=== PATIENT | female | born 1955 | race Caucasian/White ===

== ENCOUNTER 2018-04-10 01:21 | Inpatient (IN) ==
[2018-04-10] MEDS ORDERED: Naloxone 0.4 MG/ML INJ IVP PRN (03:18)
[2018-04-10] MEDS ORDERED: 0.9 % Sodium Chloride 1,000 ML IVC SCH (03:30)
[2018-04-10 04:54] LABS: Basophils # 0.1 K/mcL (0.0-0.2); Basophils % 0.3 %; Eosinophils % 0.1 %; Hematocrit 37.5 % (35.3-44.9); Hemoglobin 12.6 g/dL (11.5-15.4); Immature Granulocytes % 0.5 % (0-4); Lymphocytes # 1.1 K/mcL (0.6-4.6); Mean Corpuscular HGB Conc 33.6 g/dL (31.6-35.5); Mean Corpuscular Hemoglobin 29.4 pg (28.0-33.3); Mean Corpuscular Volume 87.6 fL (83.0-100.0); Mean Platelet Volume 9.8 fL (9.4-12.4); Monocytes # 1.9 K/mcL (0.0-1.3); Monocytes % 11.9 %; Platelet Count 292 K/mcL (140-400); Red Blood Count 4.28 M/mcL (3.82-4.97); Red Cell Distribution Width 13.5 % (11.5-14.5); Segmented Neutrophils % 80.2 %
[2018-04-10 05:11] LABS: Alanine Aminotransferase 24 Units/L (7-52); Albumin 3.6 g/dL (3.5-5.7); Albumin/Globulin Ratio 1.3 (1.1-2.2); Alkaline Phosphatase 109 Units/L (34-104); Aspartate Amino Transferase 43 Units/L (13-39); BUN/Creatinine Ratio 17 (6-26); Bilirubin,Total 0.5 mg/dL (0.3-1.0); Blood Urea Nitrogen 9 mg/dL (8-23); Calcium 8.8 mg/dL (8.6-10.3); Carbon Dioxide 21 mEq/L (23-29); Chloride 107 mEq/L (98-107); Globulin 2.8 g/dL (2.4-3.5); Glucose 144 mg/dL (70-105); Osmolality,Calculated 285 (280-300); Potassium 3.6 mEq/L (3.5-5.1); Sodium 137 mEq/L (136-145); Total Protein 6.4 g/dL (6.4-8.9); eGFR For Non-African Americans > 60 (> 60)
[2018-04-10 05:14] LABS: INR 1.2; Prothrombin Time 13.8 Seconds (9.4-12.1); Troponin I 0.05 ng/mL (< 0.04)
--- NOTE | 2018-04-10 05:46 | Internal Med History&Physical ---
Date of Encounter: 04/10/18 Time of Encounter: 05:27 Internal Medicine - H&P: HPI Chief complaint: Shortness of breath/confusion History of present illness: Ms. Dickerson is a 62 year old female with a past medical history of CVA with right- sided residual weakness, dementia, PA, hypertension who was brought into [facility] due to shortness of breath. During my initial assessment, patient is a poor historian and no family members were at bedside, much of the information was obtained from records at [facility]. Apparently patient had called EMS several times today, at 11 AM and then again at 8:42 PM for a lift assist getting back into her chair. When EMS arrived in the evening, they had noted some right-sided weakness, the patient was also hyperventilating and diaphoretic and was subsequently taken to [facility] as a stroke alert for right-sided weakness. Patient's subsequently arrived and verify that the patient had a stroke 3 years ago with subsequent residual right-sided weakness, change in speech pattern and some visual deficits in both eyes. At baseline patient is able to walk and perform most activities. CT scan of the head showed no acute changes. Patient was given a breathing treatment and O2 support. Attempts were made to discontinue nasal cannula, however, patient would desaturate into the mid 80s. She was found to have an elevated d-dimer of greater than 2000 in addition to a white count of 16.5 and troponin of 0.04 . CTA was performed which was negative for PE but did identify a left lung mass concerning for malignancy. EKG was relatively unchanged from previous. No reports of chest pain. Past Med Surg Social Fam HX - Past Medical History Medical history: CVA, dementia, hyperlipidemia, hypertension, myocardial infarction, other Additional medical history: deficits from CVA unknown Psychiatric history: previous psychiatric hospitalization, other - Past Surgical History Surgical History: no surgical history - Social History Smoking Status: Never smoker Smokeless Tobacco Status: No Alcohol use: none Drug use: unknown Internal Medicine - H&P: Meds Atorvastatin [Lipitor] 40 mg PO DAILY 03/29/17 [History] Citalopram [CeleXA] 10 mg PO DAILY 03/29/17 [History] Clopidogrel [Plavix] 75 mg PO DAILY 03/29/17 [History] Haloperidol [Haldol] 0.5 mg PO BID 03/29/17 [History] Lisinopril [Zestril] 30 mg PO DAILY 03/29/17 [History] amLODIPine [Norvasc] 10 mg PO DAILY 03/29/17 [History] Aspirin [Adult Aspirin] 81 mg PO DAILY 04/09/18 [History] Ferrous Sulfate [Iron] 325 mg PO DAILY 04/09/18 [History] Vitamin D 1 PO QMONTH 04/09/18 [History] Allergy/AdvReac Type Severity Reaction Status Date / Time No Known Allergies Allergy Verified 04/09/18 22:16 All Systems PM: A 10-system review of systems was performed and is negative for pertinent findings except as documented above in the HPI. - Constitutional Constitutional: no chills, no fever(s), no night sweats - EENT Eyes: no change in vision, no discharge, no pain, no photophobia Ears: no ear discharge, no ear pain, no tinnitus Nose, mouth and throat: no dysphagia, no nasal discharge, no neck pain, no sore throat - Cardiovascular Cardiovascular ROS IM: no chest pain, no diaphoresis, no dyspnea, no lightheaded ness, no palpitations, no syncope - Respiratory Respiratory: no cough, no dyspnea, no wheezing, no excessive phlegm production - Gastrointestinal Gastrointestinal: no abdominal pain, no diarrhea, no hematemesis, no hematoc hezia, no melena, no nausea, no vomiting - Genitourinary Genitourinary: no change in urinary stream, no dysuria, no flank pain, no hematuria - Musculoskeletal Musculoskeletal ROS IM: no numbness, no tingling - Integumentary Integumentary IM: no rash, no unusual bruising - Neurological Neurological ROS: no confusion, no convulsions, no focal weakness, no numbness, no tingling, no tremor(s) - Hematologic/Lymphatic Hematologic/Lymphatic: no easy bruising - Constitutional Vitals: Temp Pulse Resp BP Pulse Ox 98.3 F 82 24 165/70 95 04/10/18 03:02 04/10/18 03:02 04/10/18 03:02 04/10/18 03:02 04/10/18 03:02 Exam: General: Alert and oriented 2 Skin:Normal color, no rash, no lesions. HEENT:EOM, pupils equal, round and reactive. Cardiovascular:Normal S1 & S2, no rubs, murmurs or gallops. No JVD. Pulse regular. Lungs: Expiratory wheezing appreciated bilaterally Abdomen:Soft, non-tender, no rigidity. Extremities:No deformity, no edema or tenderness, no joint swelling or clubbing. Neurological: No focal deficits appreciated. Pulses:Carotid and radial pulses normal +2. Rest of the physical exam is non contributory Internal Med - H&P Results - Labs CBC & Chem 7: 04/10/18 04:26 04/10/18 04:26 Labs: Short CBC 04/10/18 Range/Units 04:26 WBC 16.2 H (4.3-11.1) K/mcL Hgb 12.6 (11.5-15.4) g/dL Hct 37.5 (35.3-44.9) % Plt Count 292 (140-400) K/mcL Neutrophils # 13.0 H (1.6-8.9) K/mcL BMP 04/10/18 04:26 Sodium 137 Potassium 3.6 Chloride 107 Carbon Dioxide 21 L BUN 9 Creatinine 0.54 L Glucose 144 H Calcium 8.8 Cardiac Enzymes 04/10/18 Range/Units 04:26 Troponin I 0.05 H* (< 0.04) ng/mL Liver Function 04/10/18 Range/Units 04:26 Total Bilirubin 0.5 (0.3-1.0) mg/dL AST 43 H (13-39) Units/L ALT 24 (7-52) Units/L Alkaline Phosphatase 109 H (34-104) Units/L Albumin 3.6 (3.5-5.7) g/dL - Assessment and plan (1) Acute respiratory failure with hypoxia Current Visit: Yes Status: Acute Assessment and plan: Acute hypoxic respiratory failure in the setting of left lung mass. She also has a elevated white blood cell count and expiratory wheezing on physical examination concerning for possible pneumonia and COPD exacerbation. Patient is not on oxygen at baseline and is currently requiring 4 L. Patient apparently is an active smoker. -We will place patient on continuous pulse oximetry -We will obtain an ABG -We will initiate treatment for COPD exacerbation -Continue with levofloxacin -Appreciate pulmonary input (2) Lung mass Current Visit: Yes Status: Acute Assessment and plan: CTA shows a multilobulated left lower lobe 4.9 cm infrahilar mass highly suspicious for malignancy. There is numerous surrounding left lower lobe pulmonary nodules which could represent a combination of metastatic disease and postobstructive infectious versus inflammation. Additionally noted were multiple groundglass and solid pulmonary nodules scattered throughout both lungs suspicious for metastatic disease. Few prominent left hilar perihilar and mediastinal lymph nodes. (3) Confusion Current Visit: Yes Status: Acute Assessment and plan: Patient alert and oriented 2. No family members were at bedside to assess the patient's baseline mental status. Patient does have a history of dementia and previous history of CVA. This may be possibly patient's baseline versus a metabolic encephalopathy in the setting of hypoxia secondary to lung mass and possible pneumonia versus COPD exacerbation. -We will start patient on duo nebs and steroids -Levofloxacin -Supplemental oxygen (4) COPD exacerbation Current Visit: Yes Status: Acute Assessment and plan: Patient presents with hypoxia with a diffuse expiratory wheezing concerning for COPD exacerbation. -Duo nebs -Steroids -Levofloxacin (5) DVT prophylaxis Current Visit: Yes Status: Acute Assessment and plan: Subcutaneous heparin - Time Spent With Patient Total time spent is greater than 50% in coordination of care (as documented) at patient's floor/unit and/or counseling patient:
[2018-04-10] MEDS: MethylPREDNISolone 40 MG/ML VIAL IVP SCH ×3 (06:31→17:15)
--- NOTE | 2018-04-10 06:58 | Pulmonology Consult Note ---
Date of Encounter: 04/10/18 Time of Encounter: 06:58 Assessment and Plan (1) Lung mass Current Visit: Yes Status: Acute In conclusion this is a 62-year-old woman with a past medical history of CVA and dementia she also has underlying COPD she presented with acute respiratory failure secondary to pneumonia which is likely postobstructive in nature from a left-sided lung mass he also has COPD with an exacerbation acutely. I Reviewed her CT images and she is concern for left-sided lung mass which is suspected to be malignant. She also has hilar and mediastinal adenopathy bilateral evidence of lung nodules with some groundglass opacities which could be infectious or malignant in nature. Of note she does have some evidence of a nonenhancing liver lesion. Recs: -Agree with treatment for pneumonia Levaquin is a reasonable place to start if we can obtain sputum culture from patient that would be helpful may need to switch to beta lactam based treatment if no improvement with Levaquin. -I suspect this is metastatic disease at least within the long as there may be a evidence of metastasis outside of the lung for which I recommend CT contrast of the abdomen if this liver lesion appears to be malignant in nature than this would of course be much more concerning for metastatic process. -The question at this point is confused revolve around biopsy to make a tissue diagnosis. Unfortunately I think all options right now we will likely be on hold until Thursday until the necessary Pulmonary endoscopist or interventional radiologist would be available - If the liver lesion appears suspicious I would recommend starting with this via CT-guided biopsy -I will discuss with family about possibility of bronchoscopy which we need to be done with endobronchial ultrasound/FNA. This will not be done over the weekend and so from pulmonary standpoint okay to advance her diet I think she has a high risk for speech and swallowing abnormalities at this juncture and so would recommend consultation with speech to assess her swallowing mechanism. -Would start to 40 mg of prednisone daily if tolerating by mouth medication safely -Schedule bronchodilators and Symbicort 160/4.52 puffs twice a day -DVT prophylaxis while inpatient -Consider head MRI if confusional state continues and in fact would likely need this as a part of the staging at any event Pulmonary will continue to follow (2) Acute respiratory failure with hypoxia Current Visit: Yes Status: Acute (3) Confusion Current Visit: Yes Status: Acute (4) COPD exacerbation Current Visit: Yes Status: Acute History of Present Illness Consult date: 04/10/18 Requesting physician: Mike Clark Reason for consult: lung mass Chief complaint: Difficulty in Breathing History of present illness: This is a 62-year-old woman who presented to [facility] after family noticed some concern for new right-sided weakness and confusion and labored breathing. She has a history of CVA in the past and so she was taken to [place] the for evaluation on stroke alert. Of note the medical history was obtained from the nursing staff and the medical record as the patient is considered and an unreliable historian and there are no family members at bedside right now. Workup for acute stroke at the outside facility was negative per report but patient was noted to have leukocytosis and hypoxia CT angiogram was performed of the chest which was negative for filling defect but notable for left-sided lung mass with evidence of likely postobstructive pneumonia pulmonary was consulted for further evaluation. Patient has an extensive smoking history in fact said that she still smoking at this time although I am unable to corroborate that at this moment. She is been coughing quite a bit since she has been here and in fact during my examination she was coughing up some thick phlegm. There is no clear evidence of hemoptysis with this though however. Past Med Surg Social Fam HX - Past Medical History Medical history: CVA, dementia, hyperlipidemia, hypertension, myocardial infarction, other Additional medical history: deficits from CVA unknown Psychiatric history: previous psychiatric hospitalization, other - Past Surgical History Surgical History: no surgical history - Social History Smoking Status: Never smoker Smokeless Tobacco Status: No Alcohol use: none Drug use: unknown Medications and Allergies Atorvastatin [Lipitor] 40 mg PO DAILY 03/29/17 [History] Clopidogrel [Plavix] 75 mg PO DAILY 03/29/17 [History] Aspirin [Adult Aspirin] 81 mg PO DAILY 04/09/18 [History] Ferrous Sulfate [Iron] 325 mg PO DAILY 04/09/18 [History] Amlodipine Besylate 10 mg PO DAILY 04/10/18 [History] Citalopram Hydrobromide [Citalopram HBr] 5 mg PO DAILY 04/10/18 [History] Ergocalciferol (VITAMIN D2) [Vitamin D2] 50,000 unit PO QMONTH 04/10/18 [History] Haloperidol Oral Conc [Haldol] 0.25 mg PO Q12H 04/10/18 [History] Lisinopril 30 mg PO DAILY 04/10/18 [History] Allergy/AdvReac Type Severity Reaction Status Date / Time No Known Allergies Allergy Verified 04/10/18 10:33 All Systems: The remainder of the systems were reviewed and are negative Physical Examination Vital Signs: Vital Signs, Last 4 Hours Temp Pulse Resp BP Pulse Ox 04/10/18 03:02 98.3 F 82 24 165/70 95 General appearance: no acute distress Eyes: nonicteric ENT: oropharynx dry Mallampati (class): 4 Neck: supple Effort: mildly labored Auscultation: left: rhonchi, bilateral: wheezes Cardiovascular: regular rate and rhythm Gastrointestinal: normoactive bowel sounds, soft, non-tender Integumentary: normal Extremities: no cyanosis pupils equal and round, other (Motor function grossly intact there may be a very mild residual right-sided deficit compared to left) mood appropriate Results - Laboratory Findings CBC and BMP: 04/10/18 04:26 04/10/18 04:26 PT/INR, D-dimer PT 13.8 Seconds (9.4-12.1) H 04/10/18 04:26 Abnormal lab findings: Abnormal lab results WBC 16.2 K/mcL (4.3-11.1) H 04/10/18 04:26 Neutrophils # 13.0 K/mcL (1.6-8.9) H 04/10/18 04:26 Monocytes # 1.9 K/mcL (0.0-1.3) H 04/10/18 04:26 PT 13.8 Seconds (9.4-12.1) H 04/10/18 04:26 Carbon Dioxide 21 mEq/L (23-29) L 04/10/18 04:26 Creatinine 0.54 mg/dL (0.60-1.20) L 04/10/18 04:26 Glucose 144 mg/dL (70-105) H 04/10/18 04:26 AST 43 Units/L (13-39) H 04/10/18 04:26 Alkaline Phosphatase 109 Units/L (34-104) H 04/10/18 04:26 Troponin I 0.05 ng/mL (< 0.04) H* 04/10/18 04:26 - Diagnostic Findings Chest x-ray: report reviewed, image reviewed CT scan - chest: report reviewed, image reviewed - Clinical Findings Intake & Output: Intake & Output 04/09/18 04/09/18 04/10/18 15:59 23:59 07:59 Weight 80.2 kg Consult Discharge Plan - Plan Referrals: NONE,PCP [Primary Care Provider] -
[2018-04-10 07:05] LABS: ABG Base Excess 2 mEq/L (-2 to 3); ABG HCO3 27 mEq/L (21-27); ABG Oxygen Saturation 98 % (95-98); ABG PCO2 43 mmHg (35-45); ABG PH 7.41 pH Units (7.32-7.45); ABG PO2 110 mmHg (85-104); ABG TCO2 28 mEq/L (20-26)
--- NOTE | 2018-04-10 08:46 | Event Note ---
<KavehAmaBrittany Olman - Last Filed: 04/10/18 22:15> Date of Encounter: 04/10/18 Time of Encounter: 08:46 Ms. Dickerson is a 62 year old female who was admitted for acute exacerbation of COPD. Chest imaging studies were significant for a mass highly suspicious for malignancy. She was seen and evaluated at the bedside this morning, and reports improvement in respiratory symptoms. She states that she is breathing much easier. She denies any fevers, chills, or productive cough. She states that this has been progressively worsening for "a while". Pulmonology service consulted for assistance in evaluation and management of this patient. OBJECTIVE: * General: Pleasant adult female in no acute distress. She is resting in bed co mfortably. * HEENT: Atraumatic and noocephalic. * Cardiovascular: Regular rate and rhythm. No murmurs, gallops, or rubs appreciated. * Respiratory: Diffusely decreased breath sounds bilaterally. Scattered coarse respiratory sounds. * Extremities: No clubbing ,cyanosis, or edema present. * Neurologic: Answers questions appropriately and is cooperative with exam. No apparent focal deficits. ASSESSMENT/PLAN: - COPD with acute exacerbation: Continue levaquin and nebulized breathing treatments. Transitioned to prednisone 40mg BIDWM. Sputum culture pending. - Lung mass: Per Dr. Dickinson, patient's brother, who is her POA, does not want extensive/invasive workup/management for this problem as she has had several health problems recently. At his recommendation, palliative care consult placed for goals of care discussion. CT chest/abdomen/pelvis pending for assessment of possible metastases. - DVT prophylaxis: Continue subcutaneous heparin. <Lore Landa - Last Filed: 04/11/18 15:03> Date of Encounter: 04/11/18 I examined this patient and my medical decision-making was reviewed with the Resident Physician. I agree with the documented findings, disposition and treatment plan as described except to the extent set forth below.
[2018-04-10] MEDS: *HR* Heparin 5,000 UNIT/ML VIAL SQ SCH ×3 (10:37→23:27)
[2018-04-10] MEDS: Ipratropium/Albuterol Neb 3 ML IH SCH ×4 (10:44→22:53)
[2018-04-10 13:34] LABS: Adenovirus Not Detected (Not Detect); Bordetella Pertussis Not Detected (Not Detect); Chlamydophila pneumoniae Not Detected (Not Detect); Coronavirus 229E Not Detected (Not Detect); Coronavirus HKU1 Not Detected (Not Detect); Coronavirus NL63 Not Detected (Not Detect); Coronavirus OC43 Not Detected (Not Detect); Human Metapneumovirus DETECTED (Not Detect); Human Rhinovirus/Enterovirus Not Detected (Not Detect); Influenza A Subtype 2009 H1 Not Detected (Not Detect); Influenza A Untypeable Not Detected (Not Detect); Influenza B Not Detected (Not Detect); Mycoplasma pneumoniae Not Detected (Not Detect); Parainfluenza Virus 1 Not Detected (Not Detect); Parainfluenza Virus 2 Not Detected (Not Detect); Parainfluenza Virus 3 Not Detected (Not Detect); Parainfluenza Virus 4 Not Detected (Not Detect); Respiratory Syncytial Virus Not Detected (Not Detect)
[2018-04-10] MEDS ORDERED: Albuterol 2.5 MG/3 ML NEBULIZER IH PRN (13:46)
[2018-04-10] MEDS ORDERED: Isovue-370 500 ML BOTTLE IVP ONE (17:04)
[2018-04-10] MEDS: Budesonide/Formoterol 160/4.5 1 PUFF INH IH SCH (22:53)
[2018-04-10] MEDS: Levofloxacin 750 MG/150 ML 750 MG/150 ML BAG IVPB SCH (23:27)
[2018-04-11] MEDS: Ipratropium/Albuterol Neb 3 ML IH SCH ×4 (04:36→22:36)
[2018-04-11 04:56] LABS: Hematocrit 36.7 % (35.3-44.9); Hemoglobin 12.3 g/dL (11.5-15.4); Immature Granulocytes % 0.7 % (0-4); Lymphocytes % 4.6 %; Mean Corpuscular HGB Conc 33.5 g/dL (31.6-35.5); Mean Corpuscular Hemoglobin 29.8 pg (28.0-33.3); Mean Corpuscular Volume 88.9 fL (83.0-100.0); Mean Platelet Volume 9.9 fL (9.4-12.4); Monocytes % 6.7 %; Platelet Count 303 K/mcL (140-400); Red Blood Count 4.13 M/mcL (3.82-4.97); Red Cell Distribution Width 13.6 % (11.5-14.5); Segmented Neutrophils % 87.9 %
[2018-04-11 04:57] LABS: Basophils % 0.1 %; Lymphocytes # 0.8 K/mcL (0.6-4.6); Monocytes # 1.1 K/mcL (0.0-1.3); Neutrophils # 14.3 K/mcL (1.6-8.9)
[2018-04-11 05:13] LABS: BUN/Creatinine Ratio 27 (6-26); Blood Urea Nitrogen 14 mg/dL (8-23); Calcium 8.9 mg/dL (8.6-10.3); Carbon Dioxide 23 mEq/L (23-29); Chloride 107 mEq/L (98-107); Glucose 148 mg/dL (70-105); Osmolality,Calculated 285 (280-300); Sodium 136 mEq/L (136-145); eGFR For Non-African Americans > 60 (> 60)
[2018-04-11] MEDS: *HR* Heparin 5,000 UNIT/ML VIAL SQ SCH ×3 (08:34→23:09)
[2018-04-11] MEDS: predniSONE 20 MG TABLET PO SCH ×2 (08:35→16:10)
--- NOTE | 2018-04-11 08:44 | Internal Med Progress Note ---
<Brittany Linn N - Last Filed: 04/11/18 12:16> Hospitalist Progress Note - Encounter Date of Encounter: 04/11/18 Time of Encounter: 08:44 - Subjective Interval History: Ms. Dickerson is a 62 year old female who was admitted for acute exacerbation of COPD. Chest imaging studies were significant for a mass highly suspicious for malignancy. She was seen and evaluated at the bedside this morning, and reports improvement in respiratory symptoms. She states that she is breathing much easier. She denies any fevers, chills, or productive cough. She states that this has been progressively worsening for "a while". Pulmonology service consulted for assistance in evaluation and management of this patient. 04/10 - Patient seen and evaluated at the bedside. She states that she is doing "alright" and denies any acute complaints or concerns. Nursing staff reports no acute overnight events. - Exam Vitals: Temp Pulse Resp BP Pulse Ox 97.7 F 80 18 137/66 93 04/11/18 07:59 04/11/18 07:59 04/11/18 07:59 04/11/18 07:59 04/11/18 07:59 Exam: * General: Pleasant adult female in no acute distress. She is resting in bed comfortably. * HEENT: Atraumatic and noocephalic. * Cardiovascular: Regular rate and rhythm. No murmurs, gallops, or rubs appre ciated. * Respiratory: Diffusely decreased breath sounds bilaterally. Scattered coarse respiratory sounds. * Extremities: No clubbing ,cyanosis, or edema present. * Neurologic: Answers questions appropriately and is cooperative with exam. No apparent focal deficits. - Assessment and Plan (1) COPD exacerbation Current Visit: Yes Status: Acute Assessment and Plan: - Continue Levaquin and nebulized breathing treatments. Continue prednisone 40mg BID. Sputum culture pending. - Appreciate pulmonology recommendations regarding this patient and management of her respiratory issues. (2) Lung mass Current Visit: Yes Status: Acute Assessment and Plan: Per Dr. Dickinson, patient's brother, who is her POA, does not want extensive/invasive workup/management for this problem as she has had several health problems recently. At his recommendation, palliative care consult placed for goals of care discussion. CT chest/abdomen/pelvis pending for assessment of possible metastases. CT chest/abdomen/pelvis demonstrated the followin. Redemonstration of a left infrahilar mass likely representing primary lung malignancy. Multiple additional nodular opacities in the left lower lobe with interlobular septal thickening may represent postobstructive changes versus metastatic disease. 2. Enlarged mediastinal and hilar nodes, likely reflecting metastatic disease. Recommend correlation with PET/CT. 3. Scattered nodular opacities in the lungs bilaterally, also suspicious for metastatic disease. 4. No definite evidence of malignancy below the diaphragm. Specifically, hepatic masses have been stable since 2007, compatible with benign etiologies. Redemonstration of thickening of the bilateral adrenal glands without discrete nodules. Further evaluation with PET/CT can be considered. 5. Cholelithiasis. 6. Severe atherosclerosis. - Palliative care consult placed for assistance in determining goals of care. Will followup after that discussion if further diagnostic measures are wanted by the patient and her family. (3) DVT prophylaxis Current Visit: Yes Status: Acute Assessment and Plan: - Continue subcutaneous heparin. (4) Leukocytosis Current Visit: Yes Status: Acute Assessment and Plan: Likely secondary to acute viral infection. Patient was found to have a positive human metapneumovirus PCR on serology studies. - Continue supportive care with breathing treatments, supplemental oxygen, and bronchodilators - Continue to monitor and try and with daily CBC - Time Spent with Patient Total time spent is greater than 50% in coordination of care (as documented) at patient's floor/unit and/or counseling patient: Internal Medicine: Result - Labs CBC & Chem 7: 04/11/18 04:34 04/11/18 04:34 Labs: Short CBC 04/11/18 Range/Units 04:34 WBC 16.2 H (4.3-11.1) K/mcL Hgb 12.3 (11.5-15.4) g/dL Hct 36.7 (35.3-44.9) % Plt Count 303 (140-400) K/mcL Neutrophils # 14.3 H (1.6-8.9) K/mcL BMP 04/11/18 04:34 Sodium 136 Potassium 4.0 Chloride 107 Carbon Dioxide 23 BUN 14 Creatinine 0.52 L Glucose 148 H Calcium 8.9 Cardiac Enzymes 04/10/18 Range/Units 09:50 Troponin I 0.04 H* (< 0.04) ng/mL - ABG Interpretation ABG results: ABG ABG pH 7.41 pH Units (7.32-7.45) 04/10/18 07:02 ABG pCO2 43 mmHg (35-45) 04/10/18 07:02 ABG pO2 110 mmHg (85-104) H 04/10/18 07:02 ABG O2 Saturation 98 % (95-98) 04/10/18 07:02 PT/INR, D-dimer PT 13.8 Seconds (9.4-12.1) H 04/10/18 04:26 - Impressions Impressions Abdomen/Pelvis CT 04/10/18 20:00 IMPRESSION: 1. Redemonstration of a left infrahilar mass likely representing primary lung malignancy. Multiple additional nodular opacities in the left lower lobe with interlobular septal thickening may represent postobstructive changes versus metastatic disease. 2. Enlarged mediastinal and hilar nodes, likely reflecting metastatic disease. Recommend correlation with PET/CT. 3. Scattered nodular opacities in the lungs bilaterally, also suspicious for metastatic disease. 4. No definite evidence of malignancy below the diaphragm. Specifically, hepatic masses have been stable since 2007, compatible with benign etiologies. Redemonstration of thickening of the bilateral adrenal glands without discrete nodules. Further evaluation with PET/CT can be considered. 5. Cholelithiasis. 6. Severe atherosclerosis. D/ / 04/10/2018 21:45:54 Carmen Gomez MD / earariadna Interpreting Provider: Carmen Gomez MD Chest CT 04/10/18 20:00 IMPRESSION: 1. Redemonstration of a left infrahilar mass likely representing primary lung malignancy. Multiple additional nodular opacities in the left lower lobe with interlobular septal thickening may represent postobstructive changes versus metastatic disease. 2. Enlarged mediastinal and hilar nodes, likely reflecting metastatic disease. Recommend correlation with PET/CT. 3. Scattered nodular opacities in the lungs bilaterally, also suspicious for metastatic disease. 4. No definite evidence of malignancy below the diaphragm. Specifically, hepatic masses have been stable since 2007, compatible with benign etiologies. Redemonstration of thickening of the bilateral adrenal glands without discrete nodules. Further evaluation with PET/CT can be considered. 5. Cholelithiasis. 6. Severe atherosclerosis. D/ / 04/10/2018 21:45:54 Carmen Gomez MD / lolis Interpreting Provider: Carmen Gomez MD Consult Discharge Plan - Plan Referrals: NONE,PCP [Primary Care Provider] - <Lore Landa - Last Filed: 04/11/18 15:04> Hospitalist Progress Note - Encounter Date of Encounter: 04/11/18 - Exam Vitals: Temp Pulse Resp BP Pulse Ox 98.1 F 52 16 134/63 94 04/11/18 11:38 04/11/18 11:38 04/11/18 11:38 04/11/18 11:38 04/11/18 11:38 - Assessment and Plan (1) Lung mass Current Visit: Yes Status: Acute (2) COPD exacerbation Current Visit: Yes Status: Acute (3) DVT prophylaxis Current Visit: Yes Status: Acute (4) Leukocytosis Current Visit: Yes Status: Acute - Time Spent with Patient Total time spent is greater than 50% in coordination of care (as documented) at patient's floor/unit and/or counseling patient: Internal Medicine: Result - Labs CBC & Chem 7: 04/11/18 04:34 04/11/18 04:34 Labs: Short CBC 04/11/18 Range/Units 04:34 WBC 16.2 H (4.3-11.1) K/mcL Hgb 12.3 (11.5-15.4) g/dL Hct 36.7 (35.3-44.9) % Plt Count 303 (140-400) K/mcL Neutrophils # 14.3 H (1.6-8.9) K/mcL BMP 04/11/18 04:34 Sodium 136 Potassium 4.0 Chloride 107 Carbon Dioxide 23 BUN 14 Creatinine 0.52 L Glucose 148 H Calcium 8.9 - ABG Interpretation ABG results: ABG ABG pH 7.41 pH Units (7.32-7.45) 04/10/18 07:02 ABG pCO2 43 mmHg (35-45) 04/10/18 07:02 ABG pO2 110 mmHg (85-104) H 04/10/18 07:02 ABG O2 Saturation 98 % (95-98) 04/10/18 07:02 PT/INR, D-dimer PT 13.8 Seconds (9.4-12.1) H 04/10/18 04:26 - Impressions Impressions Abdomen/Pelvis CT 04/10/18 20:00 IMPRESSION: 1. Redemonstration of a left infrahilar mass likely representing primary lung malignancy. Multiple additional nodular opacities in the left lower lobe with interlobular septal thickening may represent postobstructive changes versus metastatic disease. 2. Enlarged mediastinal and hilar nodes, likely reflecting metastatic disease. Recommend correlation with PET/CT. 3. Scattered nodular opacities in the lungs bilaterally, also suspicious for metastatic disease. 4. No definite evidence of malignancy below the diaphragm. Specifically, hepatic masses have been stable since 2007, compatible with benign etiologies. Redemonstration of thickening of the bilateral adrenal glands without discrete nodules. Further evaluation with PET/CT can be considered. 5. Cholelithiasis. 6. Severe atherosclerosis. D/ / 04/10/2018 21:45:54 Carmen Gomez MD / lolis Interpreting Provider: Carmen Gomez MD Chest CT 04/10/18 20:00 IMPRESSION: 1. Redemonstration of a left infrahilar mass likely representing primary lung malignancy. Multiple additional nodular opacities in the left lower lobe with interlobular septal thickening may represent postobstructive changes versus metastatic disease. 2. Enlarged mediastinal and hilar nodes, likely reflecting metastatic disease. Recommend correlation with PET/CT. 3. Scattered nodular opacities in the lungs bilaterally, also suspicious for metastatic disease. 4. No definite evidence of malignancy below the diaphragm. Specifically, hepatic masses have been stable since 2007, compatible with benign etiologies. Redemonstration of thickening of the bilateral adrenal glands without discrete nodules. Further evaluation with PET/CT can be considered. 5. Cholelithiasis. 6. Severe atherosclerosis. D/ : / 04/10/2018 21:45:54 Carmen Gomez MD / earnold Interpreting Provider: Carmen Gomez MD - Attending Attestation I examined this patient and my medical decision-making was reviewed with the Resident Physician. I agree with the documented findings, disposition and treatment plan as described except to the extent set forth below.
[2018-04-11] MEDS: Budesonide/Formoterol 160/4.5 1 PUFF INH IH SCH ×2 (09:59→22:36)
--- NOTE | 2018-04-11 12:29 | Palliative - Consult Note ---
Date of Encounter: 04/11/18 Time of Encounter: 11:00 - Assessment and Plan (1) Tobacco abuse Current Visit: Yes Status: Acute Assessment and plan: Nicotine patch ordered. Patient brother states history of heavy tobacco abuse. (2) Dyspnea Current Visit: Yes Status: Acute Assessment and plan: Treatment continues with bronchodilators, oral prednisone/symbicort. Patient states her breathing is back to baseline Qualifiers: Dyspnea type: unspecified Qualified Code(s): R06.00 - Dyspnea, unspecified (3) Goals of care, counseling/discussion Current Visit: Yes Status: Acute Assessment and plan: Spoke with brother, Donald via telephone. Patient lives with him and he is caregiver/POA. He states he also cares for her 44y/o daughter who is . Patient does not use any medical equipment at home, he states they have wheelchair, but it is broken. He does get home delivered meals for her, and tried passport, but she would not let anyone care for her other than Donald. Updated Donald on CT results, and attempted goals of care discussion over the telephone, however, I think that in this situation, this would be much better in person. He cannot come today with weather, and he has to find someone to stay with his niece, so plans on coming in tomorrow to meet with palliative team at 1300. I asked him to bring copy of pt advanced directives as I cannot find on file her. (4) Acute respiratory failure with hypoxia Current Visit: Yes Status: Acute (5) Lung mass Current Visit: Yes Status: Acute Assessment and plan: Discussed CT results with brother. Based on patient's overall debility, confusion, poor health, he desires no workup. Palliative-CN HPI - Data of Consult Consult date: 04/11/18 Requesting Physician: Lore Landa MD Primary Care Provider: PCP NONE - Consult Narrative History of present illness: Ms. Dickerson is a 62 year old female with a history of lung mass and COPD, who presented to [facility] with confusion, shortness of breath, and possible right sided weakness. THey initially did a stroke alert and workup wh ich was negative. She did have leukocytosis and abnormal CTA, so patient transferred here for further evaluation. Pulmonology was consulted and their noted reviewed. She is currently being treated with steroids, bronchodilators, supportive oxygen. Patient is poor historian and no family present, so information obtained from medical record and discussion with her brother, Donald, pt caregiver and POA. Other medical history includes: CVA, dementia, hyperlipidemia, hypertension, myocardial infarction. Upon my visit, patient is pleasant and alert, thinks she is in [place]. Poor historian. Can tell me she lives with brother Donald, and asking me to call him. Slight speech impairment noted. Follows commands. Appears in no respiratory distress. States she does not use oxygen at home. DEnies pain/nausea/constipation, states eating well. No visitors are present. CC: Lore Landa MD - Time Spent with Patient Time: Total time spent is greater than 50% in coordination of care (as documented) at patient's floor/unit and/or counseling patient: Past Med Surg Social Fam HX - Past Medical History Medical history: CVA, dementia, hyperlipidemia, hypertension, myocardial infarction, other Additional medical history: deficits from CVA unknown Psychiatric history: previous psychiatric hospitalization, other - Past Surgical History Surgical History: no surgical history - Social History Smoking Status: Never smoker Smokeless Tobacco Status: No Alcohol use: none Drug use: unknown Medications and Allergies Atorvastatin [Lipitor] 40 mg PO DAILY 03/29/17 [History] Clopidogrel [Plavix] 75 mg PO DAILY 03/29/17 [History] Aspirin [Adult Aspirin] 81 mg PO DAILY 04/09/18 [History] Ferrous Sulfate [Iron] 325 mg PO DAILY 04/09/18 [History] Amlodipine Besylate 10 mg PO DAILY 04/10/18 [History] Citalopram Hydrobromide [Citalopram HBr] 5 mg PO DAILY 04/10/18 [History] Ergocalciferol (VITAMIN D2) [Vitamin D2] 50,000 unit PO QMONTH 04/10/18 [History] Haloperidol Oral Conc [Haldol] 0.25 mg PO Q12H 04/10/18 [History] Lisinopril 30 mg PO DAILY 04/10/18 [History] Allergy/AdvReac Type Severity Reaction Status Date / Time No Known Allergies Allergy Verified 04/10/18 10:33 ROS unobtainable: due to mental status Palliative Care-Exam - Constitutional Vitals: Temp Pulse Resp BP Pulse Ox 98.1 F 52 16 134/63 94 04/11/18 11:38 04/11/18 11:38 04/11/18 11:38 04/11/18 11:38 04/11/18 11:38 General appearance: Present: no acute distress - Head Head Exam: Present: normal inspection, normocephalic - Respiratory Additional comments: Breath sounds diminished throughout. Expiratory wheezes noted. - Cardiovascular Cardiovascular exam: Present: +S1, +S2 - GI/Abdominal Exam GI/Abdominal exam: Present: normal bowel sounds, soft - Extremities Exam Extremities exam: Present: normal capillary refill, normal inspection - Neurological Exam Neurological exam: Present: alert Additional comments: Oriented to name only. Can answer some questions appropriately. Follows commands. NORRIS - Skin Skin exam: Present: dry, pallor, warm Internal Medicine - CN: Reslt - Labs CBC & Chem 7: 04/11/18 04:34 04/11/18 04:34 Labs: Short CBC 04/11/18 Range/Units 04:34 WBC 16.2 H (4.3-11.1) K/mcL Hgb 12.3 (11.5-15.4) g/dL Hct 36.7 (35.3-44.9) % Plt Count 303 (140-400) K/mcL Neutrophils # 14.3 H (1.6-8.9) K/mcL BMP 04/11/18 04:34 Sodium 136 Potassium 4.0 Chloride 107 Carbon Dioxide 23 BUN 14 Creatinine 0.52 L Glucose 148 H Calcium 8.9 - ABG Interpretation ABG results: ABG ABG pH 7.41 pH Units (7.32-7.45) 04/10/18 07:02 ABG pCO2 43 mmHg (35-45) 04/10/18 07:02 ABG pO2 110 mmHg (85-104) H 04/10/18 07:02 ABG O2 Saturation 98 % (95-98) 04/10/18 07:02 PT/INR, D-dimer PT 13.8 Seconds (9.4-12.1) H 04/10/18 04:26 - Impressions Impressions Abdomen/Pelvis CT 04/10/18 20:00 IMPRESSION: 1. Redemonstration of a left infrahilar mass likely representing primary lung malignancy. Multiple additional nodular opacities in the left lower lobe with interlobular septal thickening may represent postobstructive changes versus metastatic disease. 2. Enlarged mediastinal and hilar nodes, likely reflecting metastatic disease. Recommend correlation with PET/CT. 3. Scattered nodular opacities in the lungs bilaterally, also suspicious for metastatic disease. 4. No definite evidence of malignancy below the diaphragm. Specifically, hepatic masses have been stable since 2007, compatible with benign etiologies. Redemonstration of thickening of the bilateral adrenal glands without discrete nodules. Further evaluation with PET/CT can be considered. 5. Cholelithiasis. 6. Severe atherosclerosis. D/ / 04/10/2018 21:45:54 Carmen Gomez MD / lolis Interpreting Provider: Carmen Gomez MD Chest CT 04/10/18 20:00 IMPRESSION: 1. Redemonstration of a left infrahilar mass likely representing primary lung malignancy. Multiple additional nodular opacities in the left lower lobe with interlobular septal thickening may represent postobstructive changes versus metastatic disease. 2. Enlarged mediastinal and hilar nodes, likely reflecting metastatic disease. Recommend correlation with PET/CT. 3. Scattered nodular opacities in the lungs bilaterally, also suspicious for metastatic disease. 4. No definite evidence of malignancy below the diaphragm. Specifically, hepatic masses have been stable since 2007, compatible with benign etiologies. Redemonstration of thickening of the bilateral adrenal glands without discrete nodules. Further evaluation with PET/CT can be considered. 5. Cholelithiasis. 6. Severe atherosclerosis. D/ : / 04/10/2018 21:45:54 Carmen Gomez MD / lolis Interpreting Provider: Carmen Gomez MD Consult Discharge Plan - Plan Referrals: NONE,PCP [Primary Care Provider] - Palliative Quality Palliative Quality: Screen for Code Status: NA (Awaiting family meeting), Screen for Goals of Care: NA, Screen for Pain: Yes, If Pain Regimen Started, Initiate Bowel Regimen: NA, Screen for Nausea/Vomitting: Yes Code Status: 04/10/18 03:18 Resuscitation Status: Active [RES] Routine Comment: Resuscitation Status: Full Code
[2018-04-11] MEDS: Nicotine 21 MG PATCH.TD24 TD SCH (14:33)
[2018-04-11] MEDS: Levofloxacin 750 MG/150 ML 750 MG/150 ML BAG IVPB SCH (23:09)
[2018-04-12] MEDS: Ipratropium/Albuterol Neb 3 ML IH SCH ×4 (04:21→22:32)
[2018-04-12 05:33] LABS: Basophils % 0.2 %; Hematocrit 37.1 % (35.3-44.9); Hemoglobin 12.1 g/dL (11.5-15.4); Immature Granulocytes % 0.8 % (0-4); Lymphocytes # 0.9 K/mcL (0.6-4.6); Lymphocytes % 5.8 %; Mean Corpuscular HGB Conc 32.6 g/dL (31.6-35.5); Mean Corpuscular Hemoglobin 29.2 pg (28.0-33.3); Mean Corpuscular Volume 89.6 fL (83.0-100.0); Mean Platelet Volume 9.8 fL (9.4-12.4); Monocytes % 6.1 %; Neutrophils # 13.6 K/mcL (1.6-8.9); Platelet Count 354 K/mcL (140-400); Red Blood Count 4.14 M/mcL (3.82-4.97); Red Cell Distribution Width 13.9 % (11.5-14.5); Segmented Neutrophils % 87.1 %
[2018-04-12 06:03] LABS: BUN/Creatinine Ratio 31 (6-26); Blood Urea Nitrogen 16 mg/dL (8-23); Calcium 8.8 mg/dL (8.6-10.3); Carbon Dioxide 26 mEq/L (23-29); Chloride 106 mEq/L (98-107); Glucose 139 mg/dL (70-105); Osmolality,Calculated 291 (280-300); Potassium 3.9 mEq/L (3.5-5.1); Sodium 139 mEq/L (136-145); eGFR For Non-African Americans > 60 (> 60)
[2018-04-12] MEDS: Lisinopril 20 MG TABLET PO SCH (09:59)
[2018-04-12] MEDS: Nicotine 21 MG PATCH.TD24 TD SCH (09:59)
[2018-04-12] MEDS: amLODIPine 5 MG TABLET PO SCH (09:59)
[2018-04-12] MEDS: Haloperidol Oral Conc 10 MG/5 ML UDC PO SCH ×2 (10:00→21:25)
[2018-04-12] MEDS: Aspirin Enteric Coated 81 MG Tablet PO SCH (10:00)
[2018-04-12] MEDS: Cholecalciferol (D-3) 1,000 UNIT TABLET PO SCH (10:00)
[2018-04-12] MEDS: predniSONE 20 MG TABLET PO SCH ×3 (10:00→10:19)
[2018-04-12] MEDS: *HR* Heparin 5,000 UNIT/ML VIAL SQ SCH ×3 (10:00→23:30)
[2018-04-12] MEDS: Budesonide/Formoterol 160/4.5 1 PUFF INH IH SCH ×2 (10:41→22:32)
--- NOTE | 2018-04-12 10:48 | Internal Med Progress Note ---
<AlannahloisLore barksdale - Last Filed: 04/12/18 16:51> Hospitalist Progress Note - Encounter Date of Encounter: 04/12/18 - Exam Vitals: Temp Pulse Resp BP Pulse Ox 98.3 F 99 15 146/61 96 04/12/18 11:51 04/12/18 11:51 04/12/18 11:51 04/12/18 11:51 04/12/18 11:51 - Assessment and Plan (1) Lung mass Current Visit: Yes Status: Acute (2) COPD exacerbation Current Visit: Yes Status: Acute (3) DVT prophylaxis Current Visit: Yes Status: Acute (4) Leukocytosis Current Visit: Yes Status: Acute - Time Spent with Patient Total time spent is greater than 50% in coordination of care (as documented) at patient's floor/unit and/or counseling patient: Internal Medicine: Result - Labs CBC & Chem 7: 04/12/18 04:58 04/12/18 04:58 Labs: Short CBC 04/12/18 Range/Units 04:58 WBC 15.6 H (4.3-11.1) K/mcL Hgb 12.1 (11.5-15.4) g/dL Hct 37.1 (35.3-44.9) % Plt Count 354 (140-400) K/mcL Neutrophils # 13.6 H (1.6-8.9) K/mcL BMP 04/12/18 04:58 Sodium 139 Potassium 3.9 Chloride 106 Carbon Dioxide 26 BUN 16 Creatinine 0.51 L Glucose 139 H Calcium 8.8 - ABG Interpretation ABG results: ABG ABG pH 7.41 pH Units (7.32-7.45) 04/10/18 07:02 ABG pCO2 43 mmHg (35-45) 04/10/18 07:02 ABG pO2 110 mmHg (85-104) H 04/10/18 07:02 ABG O2 Saturation 98 % (95-98) 04/10/18 07:02 PT/INR, D-dimer PT 13.8 Seconds (9.4-12.1) H 04/10/18 04:26 Consult Discharge Plan - Plan Referrals: NONE,PCP [Primary Care Provider] - - Attending Attestation I examined this patient and my medical decision-making was reviewed with the Resident Physician. I agree with the documented findings, disposition and treatment plan as described except to the extent set forth below. Patient has a mobility limitation that significantly impairs his/her ability to participate in one or more mobility-related activities of daily living (i.e. to ileting, feeding, dressing, grooming, and bathing in customary location in the home). The mobility limitation cannot be sufficiently resolved by the use of an appropriately fitted cane or walker. Use of a manual wheelchair will significantly improve the patients ability to participate in MRADLs and the patient will use it on a regular basis in the home. Patient hasnt expressed an unwillingness to use the manual wheelchair that is provided in the home. Patient has sufficient upper body function and other physical and mental capabilities needed to safely self-propel the wheelchair during a typical day OR the patient has a caregiver to provide assistance with the wheelchair. <Brittany Linn N - Last Filed: 04/12/18 17:24> Hospitalist Progress Note - Encounter Date of Encounter: 04/12/18 Time of Encounter: 10:48 - Subjective Interval History: Ms. Dickerson is a 62 year old female who was admitted for acute exacerbation of COPD. Chest imaging studies were significant for a mass highly suspicious for malignancy. She was seen and evaluated at the bedside this morning, and reports improvement in respiratory symptoms. She states that she is breathing much easier. She denies any fevers, chills, or productive cough. She states that this has been progressively worsening for "a while". Pulmonology service consulted for assistance in evaluation and management of this patient. 04/12 - Patient seen and evaluated at the bedside. She states that she is doing "alright" and denies any acute complaints or concerns. Nursing staff reports no acute overnight events. Palliative care team is planning to discuss goals of care with her and her brother this afternoon. - Exam Vitals: Temp Pulse Resp BP Pulse Ox 98.2 F 85 15 166/74 96 04/12/18 06:31 04/12/18 06:31 04/12/18 10:42 04/12/18 06:31 04/12/18 10:42 Exam: * General: Pleasant adult female in no acute distress. She is resting in bed comfortably. * HEENT: Atraumatic and normocephalic. Oxygen mask in place. * Cardiovascular: Regular rate and rhythm. No murmurs, gallops, or rubs appreciated. * Respiratory: Diffusely decreased breath sounds bilaterally. Scattered coarse respiratory sounds. * Extremities: No clubbing ,cyanosis, or edema present. * Neurologic: Answers questions appropriately and is cooperative with exam. No apparent focal deficits. - Assessment and Plan (1) COPD exacerbation Current Visit: Yes Status: Acute Assessment and Plan: - Continue Levaquin and nebulized breathing treatments. Continue prednisone 40mg daily. Anticipate a total 5 day course of steroids. - Appreciate pulmonology recommendations regarding this patient and management of her respiratory issues. (2) Leukocytosis Current Visit: Yes Status: Acute Assessment and Plan: Slightly improved on morning laboratory studies. Likely secondary to acute viral infection. Patient was found to have a positive human metapneumovirus PCR on serology studies. - Continue supportive care with breathing treatments, supplemental oxygen, and bronchodilators - Continue to monitor with daily CBC (3) Lung mass Current Visit: Yes Status: Acute Assessment and Plan: Per Dr. Dickinson, patient's brother, who is her POA, does not want extensive/invasive workup/management for this problem as she has had several health problems recently. At his recommendation, palliative care consult placed for goals of care discussion. CT chest/abdomen/pelvis pending for assessment of possible metastases. CT chest/abdomen/pelvis demonstrated the followin. Redemonstration of a left infrahilar mass likely representing primary lung malignancy. Multiple additional nodular opacities in the left lower lobe with interlobular septal thickening may represent postobstructive changes versus metastatic disease. 2. Enlarged mediastinal and hilar nodes, likely reflecting metastatic disease. Recommend correlation with PET/CT. 3. Scattered nodular opacities in the lungs bilaterally, also suspicious for metastatic disease. 4. No definite evidence of malignancy below the diaphragm. Specifically, hepatic masses have been stable since 2008, compatible with benign etiologies. Redemonstration of thickening of the bilateral adrenal glands without discrete nodules. Further evaluation with PET/CT can be considered. 5. Cholelithiasis. 6. Severe atherosclerosis. - Per palliative care discussion today, patient's brother does not want any invasive testing; therefore, no further workup will be performed at this time per his wishes. (4) DVT prophylaxis Current Visit: Yes Status: Acute Assessment and Plan: - Continue subcutaneous heparin. - Time Spent with Patient Total time spent is greater than 50% in coordination of care (as documented) at patient's floor/unit and/or counseling patient: Internal Medicine: Result - Labs CBC & Chem 7: 04/12/18 04:58 04/12/18 04:58 Labs: Short CBC 04/12/18 Range/Units 04:58 WBC 15.6 H (4.3-11.1) K/mcL Hgb 12.1 (11.5-15.4) g/dL Hct 37.1 (35.3-44.9) % Plt Count 354 (140-400) K/mcL Neutrophils # 13.6 H (1.6-8.9) K/mcL BMP 04/12/18 04:58 Sodium 139 Potassium 3.9 Chloride 106 Carbon Dioxide 26 BUN 16 Creatinine 0.51 L Glucose 139 H Calcium 8.8 - ABG Interpretation ABG results: ABG ABG pH 7.41 pH Units (7.32-7.45) 04/10/18 07:02 ABG pCO2 43 mmHg (35-45) 04/10/18 07:02 ABG pO2 110 mmHg (85-104) H 04/10/18 07:02 ABG O2 Saturation 98 % (95-98) 04/10/18 07:02 PT/INR, D-dimer PT 13.8 Seconds (9.4-12.1) H 04/10/18 04:26
--- NOTE | 2018-04-12 13:32 | Palliative Progress Note ---
<Nancy Su - Last Filed: 04/12/18 13:29> Date of Encounter: 04/12/18 Time of Encounter: 13:00 - Assessment and plan (1) Lung mass Current Visit: Yes Status: Acute Assessment and plan: Donald(Brother) aware of the patient's lung mass and does not want to do further workup at this time. He states that attempting a biopsy is risky and can make the cancer spread. At this time they want to leave it as it is. Of note, Donald also has a lung mass that he is not doing workup for. (2) COPD exacerbation Current Visit: Yes Status: Acute Assessment and plan: Pt currently with oxygen in place. Breathing comfortably with dry cough. Pulmonary to manage. (3) Goals of care, counseling/discussion Current Visit: Yes Status: Acute Assessment and plan: MPOA paperwork obtained from Donald(Trishaer) and copied for the medical record. CODE STATUS reviewed and would like the patient to remain a full code. Donald aware and educated on what this means. He is OK with CPR and short term intubation. He states that they will keep things as they are and re-evaluate if the patient remains on a ventilator. Patient currently has Passport at home and is seen by Nissa Friedman every three months at their home in [place]. Donald currently takes care of the patient and the patient's daughter(MRDD) at home by himself. Donald is aware that hospice is an option as he has been through it with another family member a few months ago for cancer as well. Donald is open to using passport for physical therapy and more assistance at home, but states that last time they had more help the patient refused to have more people in the home. Donald says the patient is fairly functional at home and "shuffles" around the house. Donald helps the patient with activities such as bathing and eating. Donald states that they are in need of a wheelchair as theirs currently will not open up. Cyndie RN Casework notified and to follow up on this. (4) CVA (cerebral vascular accident) Current Visit: Yes Status: Acute Assessment and plan: Pt with a history of CVA, no acute findings. Pt is back to baseline per Donald(Trishaer) reports. Primary care team to manage. Qualifiers: Laterality of affected vessel: unspecified - Time Spent With Patient Total time spent is greater than 50% in coordination of care (as documented) at patient's floor/unit and/or counseling patient: 25 - 35 minutes - Subjective Interval history: Upon assessment the patient is breathing comfortably with Bother (Donald) at bedside. The patient denies shortness of breath, nausea, vomiting, pain, chest pain, anxiety. Meeting held with Donald to discuss goals of care and discharge planning. Fermín FIGUEROA at bedside for this meeting as well. - Constitutional Vitals: Abnormal lab results WBC 15.6 K/mcL (4.3-11.1) H 04/12/18 04:58 Neutrophils # 13.6 K/mcL (1.6-8.9) H 04/12/18 04:58 PT 13.8 Seconds (9.4-12.1) H 04/10/18 04:26 ABG pO2 110 mmHg (85-104) H 04/10/18 07:02 ABG Total CO2 28 mEq/L (20-26) H 04/10/18 07:02 Creatinine 0.51 mg/dL (0.60-1.20) L 04/12/18 04:58 BUN/Creatinine Ratio 31 (6-26) H 04/12/18 04:58 Glucose 139 mg/dL (70-105) H 04/12/18 04:58 POC Glucose 178 mg/dL (70-99) H 04/11/18 20:39 AST 43 Units/L (13-39) H 04/10/18 04:26 Alkaline Phosphatase 109 Units/L (34-104) H 04/10/18 04:26 Troponin I 0.04 ng/mL (< 0.04) H* 04/10/18 09:50 Human Metapneumovir PCR DETECTED (Not Detect) A 04/10/18 12:22 General appearance: Present: cooperative, no acute distress. Absent: thin - Head Head exam: Present: atraumatic - Eye Eye exam: Present: PERRL Pupils: Present: normal accommodation, PERRL - ENT ENT exam: Present: mucous membranes moist - Expanded ENT Exam Teeth exam: Present: edentulous (missing teeth) - Neck Neck exam: Present: full ROM - Respiratory Respiratory exam: Absent: accessory muscle use, respiratory distress Additional comments: diminished fine crackles to all lobes - Cardiovascular Cardiovascular exam: Present: RRR, +S1, +S2. Absent: diastolic murmur, irregular rhythm, systolic murmur - GI/Abdominal GI/Abdominal exam: Present: normal bowel sounds, soft, tenderness Additional comments: Pt with bruise to left lower abdomen - Rectal Rectal exam: Present: deferred - Extremities Exam Extremities exam: Present: full ROM, normal inspection, pedal edema Additional comments: pale capillary beds - Expanded Upper Extremity Exam General: Present: nail injury (#) (left hand first finger ) - Expanded Lower Extremity Exam Lower leg exam: Present: swelling (non-pitting edema, dry flaking feet) - Back Exam Back exam: Present: full ROM - Neurological Exam Neurological exam: Present: alert, strengths equal and symetr throughout, speech deficit (pt with slurred speech, pt answers questions with one word loud answer. Pt pleasant. ). Absent: oriented X3 - Expanded Neurological Exam Patient oriented to: Present: person. Absent: place, time (Pt thinks she is at [facility]) Speech: Present: slurred Coma Scale Eye Opening: Spontaneous Coma Scale Motor Response: Obeys Commands Coma Scale Verbal Response: Confused Coma Scale Total: 14 - Psychiatric Psychiatric exam: Absent: agitated, anxious, flat affect (loud one word answers with eyes wide open for answers. ) - Expanded Psychiatric Exam Focused psych exam: Present: euphoric - Skin Skin exam: Present: dry, pallor, warm Palliative Quality Palliative Quality: Screen for Code Status: Yes, Screen for Goals of Care: Yes, Screen for Pain: Yes, If Pain Regimen Started, Initiate Bowel Regimen: NA, Screen for Nausea/Vomitting: Yes Code Status: 04/10/18 03:18 Resuscitation Status: Active [RES] Routine Comment: Resuscitation Status: Full Code - Labs CBC & Chem 7: 04/12/18 04:58 04/12/18 04:58 Labs: Laboratory Results - last 24 hr 04/11/18 04/11/18 04/12/18 07:56 20:39 04:58 WBC 15.6 H RBC 4.14 Hgb 12.1 Hct 37.1 MCV 89.6 MCH 29.2 MCHC 32.6 RDW 13.9 Plt Count 354 MPV 9.8 Immature Gran % 0.8 Seg Neutrophils % 87.1 Lymphocytes % 5.8 Monocytes % 6.1 Eosinophils % 0.0 Basophils % 0.2 Neutrophils # 13.6 H Lymphocytes # 0.9 Monocytes # 1.0 Eosinophils # 0.0 Basophils # 0.0 Sodium Potassium Chloride Carbon Dioxide BUN Creatinine Est GFR ( Amer) Est GFR (Non-Af Amer) BUN/Creatinine Ratio Glucose POC Glucose 136 H 178 H Calculated Osmolality Calcium 04/12/18 04:58 WBC RBC Hgb Hct MCV MCH MCHC RDW Plt Count MPV Immature Gran % Seg Neutrophils % Lymphocytes % Monocytes % Eosinophils % Basophils % Neutrophils # Lymphocytes # Monocytes # Eosinophils # Basophils # Sodium 139 Potassium 3.9 Chloride 106 Carbon Dioxide 26 BUN 16 Creatinine 0.51 L Est GFR ( Amer) > 60 Est GFR (Non-Af Amer) > 60 BUN/Creatinine Ratio 31 H Glucose 139 H POC Glucose Calculated Osmolality 291 Calcium 8.8 - ABG Interpretation ABG results: ABG ABG pH 7.41 pH Units (7.32-7.45) 04/10/18 07:02 ABG pCO2 43 mmHg (35-45) 04/10/18 07:02 ABG pO2 110 mmHg (85-104) H 04/10/18 07:02 ABG O2 Saturation 98 % (95-98) 04/10/18 07:02 PT/INR, D-dimer PT 13.8 Seconds (9.4-12.1) H 04/10/18 04:26 Consult Discharge Plan - Plan Referrals: NONE,PCP [Primary Care Provider] - <Araceli Lopez - Last Filed: 04/12/18 14:01> Date of Encounter: 04/12/18 - Assessment and plan (1) Lung mass Current Visit: Yes Status: Acute Assessment and plan: Notified Dr. Brittany Linn of family's desire for no lung mass workup. (2) COPD exacerbation Current Visit: Yes Status: Acute Assessment and plan: Brother reports he is ok with medication suggestions for improvement of symptoms; however, reports he does not want any type of scope completed. (3) Goals of care, counseling/discussion Current Visit: Yes Status: Acute (4) CVA (cerebral vascular accident) Current Visit: Yes Status: Acute Qualifiers: Laterality of affected vessel: unspecified - Time Spent With Patient Total time spent is greater than 50% in coordination of care (as documented) at patient's floor/unit and/or counseling patient: 25 - 35 minutes - Constitutional Vitals: Abnormal lab results WBC 15.6 K/mcL (4.3-11.1) H 04/12/18 04:58 Neutrophils # 13.6 K/mcL (1.6-8.9) H 04/12/18 04:58 PT 13.8 Seconds (9.4-12.1) H 04/10/18 04:26 ABG pO2 110 mmHg (85-104) H 04/10/18 07:02 ABG Total CO2 28 mEq/L (20-26) H 04/10/18 07:02 Creatinine 0.51 mg/dL (0.60-1.20) L 04/12/18 04:58 BUN/Creatinine Ratio 31 (6-26) H 04/12/18 04:58 Glucose 139 mg/dL (70-105) H 04/12/18 04:58 POC Glucose 178 mg/dL (70-99) H 04/11/18 20:39 AST 43 Units/L (13-39) H 04/10/18 04:26 Alkaline Phosphatase 109 Units/L (34-104) H 04/10/18 04:26 Troponin I 0.04 ng/mL (< 0.04) H* 04/10/18 09:50 Human Metapneumovir PCR DETECTED (Not Detect) A 04/10/18 12:22 General appearance: Present: cooperative, no acute distress. Absent: thin - Head Head exam: Present: atraumatic - Eye Eye exam: Present: PERRL Pupils: Present: normal accommodation, PERRL - ENT ENT exam: Present: mucous membranes moist - Neck Neck exam: Present: full ROM - Respiratory Respiratory exam: Absent: accessory muscle use, respiratory distress - Cardiovascular Cardiovascular exam: Present: RRR, +S1, +S2. Absent: diastolic murmur, irreg ular rhythm - GI/Abdominal GI/Abdominal exam: Present: normal bowel sounds, soft, tenderness - Rectal Rectal exam: Present: deferred - Expanded Exam Female exam: Present: deferred - Extremities Exam Extremities exam: Present: full ROM, normal inspection, pedal edema - Expanded Upper Extremity Exam General: Present: nail injury (#) - Back Exam Back exam: Present: full ROM - Neurological Exam Neurological exam: Present: alert, strengths equal and symetr throughout, speech deficit. Absent: oriented X3 - Psychiatric Psychiatric exam: Absent: agitated, anxious - Skin Skin exam: Present: dry, pallor, warm Palliative Quality Palliative Quality: Screen for Code Status: Yes, Screen for Goals of Care: Yes, Screen for Pain: Yes, If Pain Regimen Started, Initiate Bowel Regimen: NA, Screen for Nausea/Vomitting: Yes Code Status: 04/10/18 03:18 Resuscitation Status: Active [RES] Routine Comment: Resuscitation Status: Full Code - Labs CBC & Chem 7: 04/12/18 04:58 04/12/18 04:58 Labs: Laboratory Results - last 24 hr 04/11/18 04/11/18 04/12/18 07:56 20:39 04:58 WBC 15.6 H RBC 4.14 Hgb 12.1 Hct 37.1 MCV 89.6 MCH 29.2 MCHC 32.6 RDW 13.9 Plt Count 354 MPV 9.8 Immature Gran % 0.8 Seg Neutrophils % 87.1 Lymphocytes % 5.8 Monocytes % 6.1 Eosinophils % 0.0 Basophils % 0.2 Neutrophils # 13.6 H Lymphocytes # 0.9 Monocytes # 1.0 Eosinophils # 0.0 Basophils # 0.0 Sodium Potassium Chloride Carbon Dioxide BUN Creatinine Est GFR ( Amer) Est GFR (Non-Af Amer) BUN/Creatinine Ratio Glucose POC Glucose 136 H 178 H Calculated Osmolality Calcium 04/12/18 04:58 WBC RBC Hgb Hct MCV MCH MCHC RDW Plt Count MPV Immature Gran % Seg Neutrophils % Lymphocytes % Monocytes % Eosinophils % Basophils % Neutrophils # Lymphocytes # Monocytes # Eosinophils # Basophils # Sodium 139 Potassium 3.9 Chloride 106 Carbon Dioxide 26 BUN 16 Creatinine 0.51 L Est GFR ( Amer) > 60 Est GFR (Non-Af Amer) > 60 BUN/Creatinine Ratio 31 H Glucose 139 H POC Glucose Calculated Osmolality 291 Calcium 8.8 - ABG Interpretation ABG results: ABG ABG pH 7.41 pH Units (7.32-7.45) 04/10/18 07:02 ABG pCO2 43 mmHg (35-45) 04/10/18 07:02 ABG pO2 110 mmHg (85-104) H 04/10/18 07:02 ABG O2 Saturation 98 % (95-98) 04/10/18 07:02 PT/INR, D-dimer PT 13.8 Seconds (9.4-12.1) H 04/10/18 04:26 Palliative Scale - Palliative Performance Scale How ambulatory is this patient?: Mainly sit / lie What is patient's level of activity and evidence of disease?: Unable to do any work, Extensive disease How much self-care assistance does patient require?: Considerable assistance required How much oral intake does the patient have?: Normal or reduced What is this patient's level of consciousness?: Full or confusion Palliative Performance Score: 50 %
[2018-04-12] MEDS: Levofloxacin 750 MG/150 ML 750 MG/150 ML BAG IVPB SCH (23:30)
[2018-04-13] MEDS: Ipratropium/Albuterol Neb 3 ML IH SCH ×4 (04:02→22:40)
[2018-04-13 05:31] LABS: Basophils # 0.1 K/mcL (0.0-0.2); Basophils % 0.8 %; Hematocrit 38.9 % (35.3-44.9); Hemoglobin 12.6 g/dL (11.5-15.4); Immature Granulocytes % 2.6 % (0-4); Lymphocytes # 1.6 K/mcL (0.6-4.6); Lymphocytes % 12.5 %; Mean Corpuscular HGB Conc 32.4 g/dL (31.6-35.5); Mean Corpuscular Volume 89.4 fL (83.0-100.0); Monocytes # 1.3 K/mcL (0.0-1.3); Neutrophils # 9.5 K/mcL (1.6-8.9); Platelet Count 388 K/mcL (140-400); Red Blood Count 4.35 M/mcL (3.82-4.97); Segmented Neutrophils % 74.1 %
[2018-04-13 06:15] LABS: BUN/Creatinine Ratio 25 (6-26); Blood Urea Nitrogen 13 mg/dL (8-23); Calcium 8.9 mg/dL (8.6-10.3); Carbon Dioxide 29 mEq/L (23-29); Chloride 104 mEq/L (98-107); Glucose 112 mg/dL (70-105); Osmolality,Calculated 293 (280-300); Potassium 3.8 mEq/L (3.5-5.1); Sodium 141 mEq/L (136-145); eGFR For Non-African Americans > 60 (> 60)
[2018-04-13 08:31] LABS: Bilirubin,Urine Negative (Negative); Blood,Urine Negative (Negative); Clarity,Urine Cloudy (Clear); Color,Urine Yellow (Yellow); Glucose,Urine (UA) Normal (Normal); Ketones,Urine Negative (Negative); Leukocyte Esterase,Urine Trace (Negative); Nitrite,Urine Negative (Negative); PH,Urine 6.5 pH Units (5.0-8.0); Protein,Urine Trace mg/dL (Neg-Trace); Specific Gravity,Urine 1.014 (1.010-1.025); Urobilinogen,Urine Normal (Normal)
--- NOTE | 2018-04-13 08:42 | Discharge Summary ---
<Gabriella Salguero - Last Filed: 04/15/18 15:28> Date of Encounter: 04/15/18 - Discharge Diagnosis (1) Lung mass Status: Acute (2) COPD exacerbation Status: Acute (3) DVT prophylaxis Status: Acute (4) Leukocytosis Status: Acute Hospital course: Ms. Dickerson is a 62 year old female - Time Spent with Patient Total time spent providing and/or coordinating discharge services: Greater than 30 minutes (45 min) - Discharge Medications Prescriptions: Budesonide/Formoterol 160/4.5 [Symbicort 160/4.5] 2 puff IH BIDR #1 inh Ipratropium/Albuterol Neb [Duoneb] 3 ml IH QIDR #60 inhsol Lisinopril [Zestril] 40 mg PO DAILY #30 tablet Home Medications: Atorvastatin [Lipitor] 40 mg PO DAILY 03/29/17 [History] Clopidogrel [Plavix] 75 mg PO DAILY 03/29/17 [History] Aspirin [Adult Aspirin] 81 mg PO DAILY 04/09/18 [History] Ferrous Sulfate [Iron] 325 mg PO DAILY 04/09/18 [History] Amlodipine Besylate 10 mg PO DAILY 04/10/18 [History] Citalopram Hydrobromide [Citalopram HBr] 5 mg PO DAILY 04/10/18 [History] Ergocalciferol (VITAMIN D2) [Vitamin D2] 50,000 unit PO QMONTH 04/10/18 [History] Haloperidol Oral Conc [Haldol] 0.25 mg PO Q12H 04/10/18 [History] Budesonide/Formoterol 160/4.5 [Symbicort 160/4.5] 2 puff IH BIDR #1 inh 04/13/18 [Rx] Ipratropium/Albuterol Neb [Duoneb] 3 ml IH QIDR #60 inhsol 04/15/18 [Rx] Lisinopril [Zestril] 40 mg PO DAILY #30 tablet 04/15/18 [Rx] Allergies/Adverse Reactions: Allergy/AdvReac Type Severity Reaction Status Date / Time No Known Allergies Allergy Verified 04/10/18 10:33 Date of admission: 04/10/18 03:18 Primary care physician: PCP NONE Consults: 04/10/18 03:23 Consult to Pulmonology [CONS] Routine Consulting Provider: [facility] Reason for Consult: Lung mass concerning for malignancy Call Completed: No 04/10/18 05:28 Consult to Nurse Navigator [CONS] Routine Comment: 04/10/18 13:46 Consult to Palliative Care [CONS] Routine Comment: Consulting Provider: [facility] Reason for Consult: Goals of care Time Notified: 13:47 Call Completed: Yes 04/12/18 10:21 Consult to Occupational Therapy [CONS] Routine Comment: Evaluate, develop and implement POC Reason for Consult: WEAKNESS, MULTIPLE FALLS PRIOR TO ADMISSION, POSSIBLE SNF PLACEMENT Does patient have active BEDREST order?: No Is patient medically & hemodynamically stable?: Yes Consult to Physical Therapy [CONS] Routine Comment: Evaluate, develop and implement POC Reason for Consult: WEAKNESS, MULTIPLE FALLS PRIOR TO ADMISSION, POSSIBLE SNF PLACEMENT Does patient have active BEDREST order?: No Is patient medically & hemodynamically stable?: Yes - Constitutional Vitals: Temp Pulse Resp BP Pulse Ox 98.2 F 96 18 162/75 98 04/15/18 11:27 04/15/18 11:27 04/15/18 11:27 04/15/18 11:27 04/15/18 11:27 - Patient Status Disposition: Home, Self-Care Condition: Fair Overall status at discharge: patient is progressing back to baseline - Discharge Instructions Follow Up With: Sonia Coy JEWELRY SALES REPRESENTATIVE [Advanced Practice Nurse] - 04/16/18 11:40 am NONE,PCP [Primary Care Provider] - (Your appointment has been requested. Our offices will call with an appointment time and date.) Additional Instructions: Follow up with your PCP in 3-5 days. Continue home medications. Continue to use duonebs 4 times per day. Continue to take lisinopril 40mg daily (new dose; do not take 30mg dose) Continue using symbicort 2 puffs twice per day. Return to the ED if breathing worsens or if new concerns arise. A nebulizer has been ordered from [facility]. They will deliver it to your house today. - Attending Attestation I examined this patient and my medical decision-making was reviewed with the Resident Physician Dr Linn. I agree with the documented findings, disposition and treatment plan as described except to the extent set forth below. Ms Dickerson was admitted for COPDE. bret solomon,RN at bedside. States breathing is good today. Says she is not coughing or wheezing. No headache or chest pain. Eagerly awaiting dc Cannot obtain further reliable ros/hpi given dementia and MR. Family not at bedside. gen- alert, awake,appears stated age eyes- pupils equal round cv- reg rate and reg rhythm, normal s1,s2, no murmurs appreciated, no le edema lungs- ctabl, no wheezing, rhonchi or crackles, normal resp effort with O2 oxymask (bc takes NC off when nurse applies it) abd- soft, non tender, non distended, + bs neuro- AAOxperson, hospital, situation COPDE with + human metapneumovirus-levaquin course and steroid course completed, will dc with nebs/nebulizer and cont o2 nc for home and already set up Lung mass with CT findings concerning for malignancy and metastatic lung disease-palliative care as per her brother / POAs request, fu with outpt provider Sinus Tachycardia- resolved with IVF challenge HTN, improving with med changes- while her BP is now down into 160/70s her brother is reporting normal bps at home and is frustrated with delay in her dc in recent days, we will dc her to home with current regimen, but she requires outpt fu with pcp for further adjustments. further diagnoses and plan as noted by resident dc to home with brother <KavehAmaBrittany N - Last Filed: 04/15/18 18:17> - NOTES TO OUTPATIENT PROVIDER Notes to Outpatient Provider: Patient was admitted for an acute exacerbation of COPD. Serology was positive for presence of human metapneumovirus. Patient was also noted to have a lung mass on imaging studies. Biopsy and further diagnostic workup was not completed based on the wishes expressed by her brother, who is her POA. Patient is to follow up with her PCP in 1 week. Orders not resulted at time of discharge: Pending orders 04/10/18 22:13 Culture,Sputum with Gram Stain [RM] Routine Date of Encounter: 04/15/18 Time of Encounter: 08:42 - Discharge Diagnosis (1) COPD exacerbation Priority: Primary Status: Acute (2) Leukocytosis Priority: Secondary Status: Acute Qualifiers: Leukocytosis type: unspecified Qualified Code(s): D72.829 - Elevated white blood cell count, unspecified (3) Lung mass Priority: Secondary (Right) Status: Acute (4) DVT prophylaxis Priority: Secondary Status: Acute Hospital course: Ms. Dickerson is a 62 year old female who was admitted to the hospital for an acute exacerbation of COPD. Initial imaging studies performed at outside facility demonstrated presence of a lung mass that was highly suspicious for malignancy. Patient was evaluated by pulmonology service, who recommended biopsy; however, after discussing this with the patient's power of ip technology transactions attorney, it was voiced that no invasive workup or interventions were desired. Palliative care team was consultative for assistance in determining goals of care. Patient's brother reportedly requested that he remain full code, but again reiterated that he did not want invasive workup for this problem. CT of the chest abdomen and pelvis revealed multiple abnormalities as follows: 1. Redemonstration of a left infrahilar mass likely representing primary lung malignancy. Multiple additional nodular opacities in the left lower lobe with interlobular septal thickening may represent postobstructive changes versus metastatic disease. 2. Enlarged mediastinal and hilar nodes, likely reflecting metastatic disease. Recommend correlation with PET/CT. 3. Scattered nodular opacities in the lungs bilaterally, also suspicious for metastatic disease. 4. No definite evidence of malignancy below the diaphragm. Specifically, hepatic masses have been stable since 2007, compatible with benign etiologies. Redemonstration of thickening of the bilateral adrenal glands without discrete nodules. Further evaluation with PET/CT can be considered. 5. Cholelithiasis. 6. Severe atherosclerosis. Patient was treated for COPD exacerbation with a 5 day course of antibiotics and steroids. She also received nebulized breathing treatments. Patient was initially to be discharged on 04/13, but reportedly voiced some concerns for her safety upon being informed that she would return home. Patient discharge was canceled pending evaluation by [facility] nurse and social services manager. Per their recommendations, [facility] was contacted, with plans for in-home follow-up. Patient did have tachycardia and elevated blood pressure on 04/14. EKG revealed sinus tachycardia. No clear etiology for this was uncovered. Patient did have improvement in blood pressure with increased in dose of lisinopril. She was discharged home on lisinopril 40 mg daily. Undated discharge, she denied any acute complaints or concerns, and reported improvement in her breathing status overall. She denies any cough or sputum production. Discharge discussed with: patient - Time Spent with Patient Total time spent providing and/or coordinating discharge services: Date of admission: 04/10/18 03:18 Primary care physician: PCP NONE Consults: 04/10/18 03:23 Consult to Pulmonology [CONS] Routine Consulting Provider: [facility] Reason for Consult: Lung mass concerning for malignancy Call Completed: No 04/10/18 05:28 Consult to Nurse Navigator [CONS] Routine Comment: 04/10/18 13:46 Consult to Palliative Care [CONS] Routine Comment: Consulting Provider: [facility] Reason for Consult: Goals of care Time Notified: 13:47 Call Completed: Yes 04/12/18 10:21 Consult to Occupational Therapy [CONS] Routine Comment: Evaluate, develop and implement POC Reason for Consult: WEAKNESS, MULTIPLE FALLS PRIOR TO ADMISSION, POSSIBLE SNF PLACEMENT Does patient have active BEDREST order?: No Is patient medically & hemodynamically stable?: Yes Consult to Physical Therapy [CONS] Routine Comment: Evaluate, develop and implement POC Reason for Consult: WEAKNESS, MULTIPLE FALLS PRIOR TO ADMISSION, POSSIBLE SNF PLACEMENT Does patient have active BEDREST order?: No Is patient medically & hemodynamically stable?: Yes Discharging clinician: Brittany Linn Anticipated date of discharge: 04/15/18 - Constitutional Vitals: Temp Pulse Resp BP Pulse Ox 98.1 F 91 14 181/84 96 04/13/18 06:43 04/13/18 06:43 04/13/18 06:43 04/13/18 06:43 04/13/18 06:43 Exam: * General: Pleasant adult female in no acute distress. She is resting in bed comfortably. * HEENT: Atraumatic and normocephalic. Oxygen mask in place. * Cardiovascular: Elevated rate with regular rhythm. No murmurs, gallops, or rubs appreciated. * Respiratory: Diffusely decreased breath sounds bilaterally. Scattered coarse respiratory sounds. * Extremities: No clubbing, cyanosis, or edema present. * Neurologic: Patient is cooperative with exam. No apparent focal deficits. - Patient Status Overall status at discharge: patient is progressing back to baseline - Diet and Activity Activity: increase activity as tolerated Diet: low fat, low cholesterol, low salt diet
[2018-04-13] MEDS: predniSONE 20 MG TABLET PO SCH (09:34)
[2018-04-13] MEDS: Haloperidol Oral Conc 10 MG/5 ML UDC PO SCH ×2 (09:34→21:07)
[2018-04-13] MEDS: Nicotine 21 MG PATCH.TD24 TD SCH (09:34)
[2018-04-13] MEDS: Lisinopril 20 MG TABLET PO SCH (09:34)
[2018-04-13] MEDS: amLODIPine 5 MG TABLET PO SCH (09:34)
[2018-04-13] MEDS: Cholecalciferol (D-3) 1,000 UNIT TABLET PO SCH (09:35)
[2018-04-13] MEDS: *HR* Heparin 5,000 UNIT/ML VIAL SQ SCH ×2 (09:35→15:41)
[2018-04-13] MEDS: Aspirin Enteric Coated 81 MG Tablet PO SCH (09:35)
[2018-04-13] MEDS: Budesonide/Formoterol 160/4.5 1 PUFF INH IH SCH ×2 (11:08→22:41)
--- NOTE | 2018-04-13 15:04 | Internal Med Progress Note ---
<Brittany Linn N - Last Filed: 04/13/18 15:05> Hospitalist Progress Note - Encounter Date of Encounter: 04/13/18 Time of Encounter: 15:04 - Subjective Interval History: Ms. Dickerson was seen and evaluated at the bedside. She denied any acute complaints or concerns, and reported improvement in her breathing. Patient was planned for discharge this afternoon; however, nursing staff and social work reported that the patient became fearful and began shouting after being told she was going home today. She reportedly expressed fear that she would not be safe. She was also noted to be confused during this time, seeing children in her room that were not present. Discharge [facility] be held [facility] this patient. - Exam Vitals: Temp Pulse Resp BP Pulse Ox 98.4 F 97 16 129/47 97 04/13/18 11:05 04/13/18 12:07 04/13/18 12:07 04/13/18 12:07 04/13/18 12:06 Exam: * General: Pleasant adult female in no acute distress. She is resting in bed comfortably. * HEENT: Atraumatic and normocephalic. Oxygen mask in place. * Cardiovascular: Regular rate and rhythm. No murmurs, gallops, or rubs appreciated. * Respiratory: Diffusely decreased breath sounds bilaterally. Scattered coarse respiratory sounds. * Extremities: No clubbing, cyanosis, or edema present. * Neurologic: Patient is cooperative with exam. No apparent focal deficits. - Assessment and Plan (1) COPD exacerbation Current Visit: Yes Status: Acute Assessment and Plan: - Continue Levaquin and nebulized breathing treatments. Continue prednisone 40mg daily. Anticipate a total 5 day course of steroids and antibiotics. (2) Lung mass Current Visit: Yes Status: Acute Assessment and Plan: Per Dr. Dickinson, patient's brother, who is her POA, does not want extensive/invasive workup/management for this problem as she has had several health problems recently. At his recommendation, palliative care consult placed for goals of care discussion. CT chest/abdomen/pelvis pending for assessment of possible metastases. CT chest/abdomen/pelvis demonstrated the followin. Redemonstration of a left infrahilar mass likely representing primary lung malignancy. Multiple additional nodular opacities in the left lower lobe with interlobular septal thickening may represent postobstructive changes versus metastatic disease. 2. Enlarged mediastinal and hilar nodes, likely reflecting metastatic disease. Recommend correlation with PET/CT. 3. Scattered nodular opacities in the lungs bilaterally, also suspicious for metastatic disease. 4. No definite evidence of malignancy below the diaphragm. Specifically, hepatic masses have been stable since 2007, compatible with benign etiologies. Redemonstration of thickening of the bilateral adrenal glands without discrete nodules. Further evaluation with PET/CT can be considered. 5. Cholelithiasis. 6. Severe atherosclerosis. - Per palliative care discussion, patient's brother does not want any invasive testing; therefore, no further workup will be performed at this time per his wishes. (3) DVT prophylaxis Current Visit: Yes Status: Acute Assessment and Plan: - Continue subcutaneous heparin. (4) Leukocytosis Current Visit: Yes Status: Acute Assessment and Plan: Improving. Likely secondary to acute viral infection. Patient was found to have a positive human metapneumovirus PCR on serology studies. - Continue supportive care with breathing treatments, supplemental oxygen, and bronchodilators - Time Spent with Patient Total time spent is greater than 50% in coordination of care (as documented) at patient's floor/unit and/or counseling patient: Internal Medicine: Result - Labs CBC & Chem 7: 04/13/18 04:46 04/13/18 04:46 Labs: Short CBC 04/13/18 Range/Units 04:46 WBC 12.9 H (4.3-11.1) K/mcL Hgb 12.6 (11.5-15.4) g/dL Hct 38.9 (35.3-44.9) % Plt Count 388 (140-400) K/mcL Neutrophils # 9.5 H (1.6-8.9) K/mcL BMP 04/13/18 04:46 Sodium 141 Potassium 3.8 Chloride 104 Carbon Dioxide 29 BUN 13 Creatinine 0.53 L Glucose 112 H Calcium 8.9 Urine 04/12/18 Range/Units 22:00 Urine Color Yellow (Yellow) Urine Clarity Cloudy A (Clear) Urine pH 6.5 (5.0-8.0) pH Units Ur Specific [place] 1.014 (1.010-1.025) Urine Protein Trace (Neg-Trace) mg/dL Urine Glucose (UA) Normal (Normal) mg/dL - ABG Interpretation ABG results: ABG ABG pH 7.41 pH Units (7.32-7.45) 04/10/18 07:02 ABG pCO2 43 mmHg (35-45) 04/10/18 07:02 ABG pO2 110 mmHg (85-104) H 04/10/18 07:02 ABG O2 Saturation 98 % (95-98) 04/10/18 07:02 PT/INR, D-dimer PT 13.8 Seconds (9.4-12.1) H 04/10/18 04:26 Consult Discharge Plan - Plan Additional Instructions: Follow up with your PCP in 3-5 days. Continue home medications. Continue taking levaquin once daily until finished. Continue to take prednisone for one more day. Continue using symbicort 2 puffs twice per day. Return to the ED if breathing worsens or if new concerns arise. Referrals: Sonia Coy, WOOD SCIENCE PROFESSOR [Advanced Practice Nurse] - 04/16/18 11:40 am NONE,PCP [Primary Care Provider] - (Your appointment has been requested. Our offices will call with an appointment time and date.) Prescriptions: Budesonide/Formoterol 160/4.5 [Symbicort 160/4.5] 2 puff IH BIDR #1 inh levoFLOXacin [Levaquin] 750 mg PO DAILY #2 tablet predniSONE [PredniSONE] 40 mg PO DAILY 1 Days #2 tablet <Lore Landa - Last Filed: 04/13/18 18:44> Hospitalist Progress Note - Encounter Date of Encounter: 04/13/18 - Exam Vitals: Temp Pulse Resp BP Pulse Ox 98 F 93 16 164/54 93 04/13/18 18:30 04/13/18 18:30 04/13/18 18:30 04/13/18 18:30 04/13/18 18:30 - Assessment and Plan (1) Lung mass Current Visit: Yes Status: Acute (2) COPD exacerbation Current Visit: Yes Status: Acute (3) DVT prophylaxis Current Visit: Yes Status: Acute (4) Leukocytosis Current Visit: Yes Status: Acute - Time Spent with Patient Total time spent is greater than 50% in coordination of care (as documented) at patient's floor/unit and/or counseling patient: Internal Medicine: Result - Labs CBC & Chem 7: 04/13/18 04:46 04/13/18 04:46 Labs: Short CBC 04/13/18 Range/Units 04:46 WBC 12.9 H (4.3-11.1) K/mcL Hgb 12.6 (11.5-15.4) g/dL Hct 38.9 (35.3-44.9) % Plt Count 388 (140-400) K/mcL Neutrophils # 9.5 H (1.6-8.9) K/mcL BMP 04/13/18 04:46 Sodium 141 Potassium 3.8 Chloride 104 Carbon Dioxide 29 BUN 13 Creatinine 0.53 L Glucose 112 H Calcium 8.9 Urine 04/12/18 Range/Units 22:00 Urine Color Yellow (Yellow) Urine Clarity Cloudy A (Clear) Urine pH 6.5 (5.0-8.0) pH Units Ur Specific [place] 1.014 (1.010-1.025) Urine Protein Trace (Neg-Trace) mg/dL Urine Glucose (UA) Normal (Normal) mg/dL - ABG Interpretation ABG results: ABG ABG pH 7.41 pH Units (7.32-7.45) 04/10/18 07:02 ABG pCO2 43 mmHg (35-45) 04/10/18 07:02 ABG pO2 110 mmHg (85-104) H 04/10/18 07:02 ABG O2 Saturation 98 % (95-98) 04/10/18 07:02 PT/INR, D-dimer PT 13.8 Seconds (9.4-12.1) H 04/10/18 04:26 - Attending Attestation I examined this patient and my medical decision-making was reviewed with the Resident Physician. I agree with the documented findings, disposition and treatment plan as described except to the extent set forth below.
[2018-04-14] MEDS: *HR* Heparin 5,000 UNIT/ML VIAL SQ SCH ×4 (00:04→23:01)
[2018-04-14] MEDS: Levofloxacin 750 MG/150 ML 750 MG/150 ML BAG IVPB SCH ×2 (00:20→23:01)
[2018-04-14] MEDS: Ipratropium/Albuterol Neb 3 ML IH SCH ×4 (04:46→22:11)
--- NOTE | 2018-04-14 08:26 | Internal Med Progress Note ---
Hospitalist Progress Note - Encounter Date of Encounter: 04/14/18 Time of Encounter: 08:26 - Subjective Interval History: Ms. Dickerson was seen and evaluated at the bedside. She denied any acute complaints or concerns, and reported improvement in her breathing. Patient was planned for discharge this afternoon; however, nursing staff and social work reported that the patient became fearful and began shouting after being told she was going home today. She reportedly expressed fear that she would not be safe. She was also noted to be confused during this time, seeing children in her room that were not present. Discharge will be held and [facility] nurse has been asked to evaluate this patient. - Exam Vitals: Temp Pulse Resp BP Pulse Ox 99.1 F 110 16 116/81 96 04/14/18 08:21 04/14/18 08:21 04/14/18 08:21 04/14/18 08:21 04/14/18 08:21 - Assessment and Plan (1) COPD exacerbation Current Visit: Yes Status: Acute (2) Leukocytosis Current Visit: Yes Status: Acute (3) Lung mass Current Visit: Yes Status: Acute (4) DVT prophylaxis Current Visit: Yes Status: Acute - Time Spent with Patient Total time spent is greater than 50% in coordination of care (as documented) at patient's floor/unit and/or counseling patient: Internal Medicine: Result - Labs CBC & Chem 7: 04/13/18 04:46 04/13/18 04:46 Labs: Urine 04/12/18 Range/Units 22:00 Urine Color Yellow (Yellow) Urine Clarity Cloudy A (Clear) Urine pH 6.5 (5.0-8.0) pH Units Ur Specific [place] 1.014 (1.010-1.025) Urine Protein Trace (Neg-Trace) mg/dL Urine Glucose (UA) Normal (Normal) mg/dL - ABG Interpretation ABG results: ABG ABG pH 7.41 pH Units (7.32-7.45) 04/10/18 07:02 ABG pCO2 43 mmHg (35-45) 04/10/18 07:02 ABG pO2 110 mmHg (85-104) H 04/10/18 07:02 ABG O2 Saturation 98 % (95-98) 04/10/18 07:02 PT/INR, D-dimer PT 13.8 Seconds (9.4-12.1) H 04/10/18 04:26 Consult Discharge Plan - Plan Additional Instructions: Follow up with your PCP in 3-5 days. Continue home medications. Continue taking levaquin once daily until finished. Continue to take prednisone for one more day. Continue using symbicort 2 puffs twice per day. Return to the ED if breathing worsens or if new concerns arise. Referrals: Sonia Coy, CAN CONVEYOR FEEDER [Advanced Practice Nurse] - 04/16/18 11:40 am NONE,PCP [Primary Care Provider] - (Your appointment has been requested. Our offices will call with an appointment time and date.) Prescriptions: Budesonide/Formoterol 160/4.5 [Symbicort 160/4.5] 2 puff IH BIDR #1 inh levoFLOXacin [Levaquin] 750 mg PO DAILY #2 tablet
[2018-04-14] MEDS: Haloperidol Oral Conc 10 MG/5 ML UDC PO SCH ×2 (09:01→20:40)
[2018-04-14] MEDS: amLODIPine 5 MG TABLET PO SCH (09:01)
[2018-04-14] MEDS: Nicotine 21 MG PATCH.TD24 TD SCH (09:02)
[2018-04-14] MEDS: Cholecalciferol (D-3) 1,000 UNIT TABLET PO SCH (09:02)
[2018-04-14] MEDS: predniSONE 20 MG TABLET PO SCH (09:02)
[2018-04-14] MEDS: Lisinopril 20 MG TABLET PO SCH (09:02)
[2018-04-14] MEDS: Aspirin Enteric Coated 81 MG Tablet PO SCH (09:03)
[2018-04-14] MEDS: Budesonide/Formoterol 160/4.5 1 PUFF INH IH SCH ×2 (11:27→22:11)
[2018-04-14] MEDS ORDERED: 0.9 % Sodium Chloride 500 ML IVC ONE (11:58)
--- NOTE | 2018-04-14 12:00 | Internal Med Progress Note ---
<Gabriella Salguero - Last Filed: 04/14/18 13:42> Hospitalist Progress Note - Encounter Date of Encounter: 04/14/18 - Exam Vitals: Temp Pulse Resp BP Pulse Ox 97.8 F 109 18 152/72 95 04/14/18 11:53 04/14/18 12:52 04/14/18 11:53 04/14/18 12:52 04/14/18 11:53 - Assessment and Plan (1) Lung mass Current Visit: Yes Status: Acute (2) COPD exacerbation Current Visit: Yes Status: Acute (3) DVT prophylaxis Current Visit: Yes Status: Acute (4) Leukocytosis Current Visit: Yes Status: Acute - Time Spent with Patient Total time spent is greater than 50% in coordination of care (as documented) at patient's floor/unit and/or counseling patient: Internal Medicine: Result - Labs CBC & Chem 7: 04/14/18 12:13 04/13/18 04:46 Labs: Short CBC 04/14/18 Range/Units 12:13 WBC 13.2 H (4.3-11.1) K/mcL Hgb 13.3 (11.5-15.4) g/dL Hct 39.8 (35.3-44.9) % Plt Count 446 H (140-400) K/mcL - ABG Interpretation ABG results: ABG ABG pH 7.41 pH Units (7.32-7.45) 04/10/18 07:02 ABG pCO2 43 mmHg (35-45) 04/10/18 07:02 ABG pO2 110 mmHg (85-104) H 04/10/18 07:02 ABG O2 Saturation 98 % (95-98) 04/10/18 07:02 PT/INR, D-dimer PT 13.8 Seconds (9.4-12.1) H 04/10/18 04:26 Consult Discharge Plan - Plan Additional Instructions: Follow up with your PCP in 3-5 days. Continue home medications. Continue taking levaquin once daily until finished. Continue to take prednisone for one more day. Continue using symbicort 2 puffs twice per day. Return to the ED if breathing worsens or if new concerns arise. Referrals: Sonia Coy, HARDNESS INSPECTOR [Advanced Practice Nurse] - 04/16/18 11:40 am NONE,PCP [Primary Care Provider] - (Your appointment has been requested. Our offices will call with an appointment time and date.) Prescriptions: Budesonide/Formoterol 160/4.5 [Symbicort 160/4.5] 2 puff IH BIDR #1 inh levoFLOXacin [Levaquin] 750 mg PO DAILY #2 tablet - Attending Attestation I examined this patient and my medical decision-making was reviewed with the Resident Physician Dr Linn. I agree with the documented findings, disposition and treatment plan as described except to the extent set forth below. Ms Dickerson was admitted for COPDE. awake, pleasant, denying sob, cough or wheezing. Hoping she can go home today. Denies palpiations or presyncope or cp with increased heart rate. Cannot obtain further reliable ros/hpi given dementia and MR. Family not at bedside. gen- alert, awake,appears stated age eyes- pupils equal round cv- tachy rate and reg rhythm, normal s1,s2, no murmurs appreciated, no le edema lungs- ctabl, no wheezing, rhonchi or crackles, normal resp effort with no NC in place currently abd- soft, non tender, non distended, + bs neuro- AAOxperson, hospital, situation COPDE with + human metapneumovirus-cont levaquin and nebs Lung mass with CT findings concerning for malignancy and metastatic lung disease-palliative care as per her borther / POAs request Tachycardia- appears sinus- persistent today- fluid challenge given recorded poor oral intake, may be related to neb use, check ekg and cbc further diagnoses and plan as noted by resident <Brittany Linn N - Last Filed: 04/14/18 18:52> Hospitalist Progress Note - Encounter Date of Encounter: 04/14/18 Time of Encounter: 12:00 - Subjective Interval History: Patient was seen and evaluated at the bedside. She denies any new complaints or concerns, and expresses that she hopes she can go home today. Nursing staff reports no acute overnight events. - Exam Vitals: Temp Pulse Resp BP Pulse Ox 97.8 F 109 18 170/78 95 04/14/18 11:53 04/14/18 11:53 04/14/18 11:53 04/14/18 11:53 04/14/18 11:53 Exam: * General: Pleasant adult female in no acute distress. She is resting in bed comfortably. * HEENT: Atraumatic and normocephalic. Oxygen mask in place. * Cardiovascular: Elevated rate with regular rhythm. No murmurs, gallops, or rubs appreciated. * Respiratory: Diffusely decreased breath sounds bilaterally. Scattered coarse respiratory sounds. * Extremities: No clubbing, cyanosis, or edema present. * Neurologic: Patient is cooperative with exam. No apparent focal deficits. - Assessment and Plan (1) COPD exacerbation Current Visit: Yes Status: Acute Assessment and Plan: - Continue Levaquin and nebulized breathing treatments. Continue prednisone 40mg daily. Anticipate discontinuation of both antibiotics and systemic steroids tomorrow, as patient will have completed her course of therapy. (2) Tachycardia Current Visit: Yes Status: Acute Assessment and Plan: Uncertain etiology. EKG demonstrated sinus tachycardia. Patient also noted to have been intermittently elevated blood pressure. May be secondary to use of inhaled steroids and systemic corticosteroids. We will continue to monitor. (3) Leukocytosis Current Visit: Yes Status: Acute Assessment and Plan: Improving. Likely secondary to acute viral infection. Patient was found to have a positive human metapneumovirus PCR on serology studies. - Continue supportive care with breathing treatments, supplemental oxygen, and bronchodilators (4) Lung mass Current Visit: Yes Status: Acute Assessment and Plan: Per Dr. Dickinson, patient's brother, who is her POA, does not want extensive/invasive workup/management for this problem as she has had several health problems recently. At his recommendation, palliative care consult placed for goals of care discussion. CT chest/abdomen/pelvis pending for assessment of possible metastases. CT chest/abdomen/pelvis demonstrated the followin. Redemonstration of a left infrahilar mass likely representing primary lung malignancy. Multiple additional nodular opacities in the left lower lobe with interlobular septal thickening may represent postobstructive changes versus metastatic disease. 2. Enlarged mediastinal and hilar nodes, likely reflecting metastatic disease. Recommend correlation with PET/CT. 3. Scattered nodular opacities in the lungs bilaterally, also suspicious for metastatic disease. 4. No definite evidence of malignancy below the diaphragm. Specifically, hepatic masses have been stable since 2007, compatible with benign etiologies. Redemonstration of thickening of the bilateral adrenal glands without discrete nodules. Further evaluation with PET/CT can be considered. 5. Cholelithiasis. 6. Severe atherosclerosis. - Per palliative care discussion, patient's brother does not want any invasive testing; therefore, no further workup will be performed at this time per his wishes. (5) DVT prophylaxis Current Visit: Yes Status: Acute Assessment and Plan: - Continue subcutaneous heparin. - Time Spent with Patient Total time spent is greater than 50% in coordination of care (as documented) at patient's floor/unit and/or counseling patient: Internal Medicine: Result - Labs CBC & Chem 7: 04/14/18 12:13 04/13/18 04:46 - ABG Interpretation ABG results: ABG ABG pH 7.41 pH Units (7.32-7.45) 04/10/18 07:02 ABG pCO2 43 mmHg (35-45) 04/10/18 07:02 ABG pO2 110 mmHg (85-104) H 04/10/18 07:02 ABG O2 Saturation 98 % (95-98) 04/10/18 07:02 PT/INR, D-dimer PT 13.8 Seconds (9.4-12.1) H 04/10/18 04:26
[2018-04-14 13:09] LABS: Hematocrit 39.8 % (35.3-44.9); Hemoglobin 13.3 g/dL (11.5-15.4); Mean Corpuscular HGB Conc 33.4 g/dL (31.6-35.5); Mean Corpuscular Hemoglobin 29.4 pg (28.0-33.3); Mean Corpuscular Volume 87.9 fL (83.0-100.0); Nucleated Red Blood Cells 0.2 /100 WBC (0); Platelet Count 446 K/mcL (140-400); Red Blood Count 4.53 M/mcL (3.82-4.97); Red Cell Distribution Width 14.1 % (11.5-14.5)
[2018-04-14 13:42] LABS: Eosinophils # 0.3 K/mcL (0.0-0.6); Lymphocytes # 1.7 K/mcL (0.6-4.6); Monocytes # 0.5 K/mcL (0.0-1.3); Neutrophils # 10.7 K/mcL (1.6-8.9)
[2018-04-14 13:43] LABS: Platelet Estimate Normal (Normal)
[2018-04-15] MEDS: Ipratropium/Albuterol Neb 3 ML IH SCH ×2 (03:46→10:37)
[2018-04-15 06:12] LABS: Hematocrit 38.5 % (35.3-44.9); Hemoglobin 12.6 g/dL (11.5-15.4); Mean Corpuscular HGB Conc 32.7 g/dL (31.6-35.5); Mean Corpuscular Volume 88.7 fL (83.0-100.0); Mean Platelet Volume 9.7 fL (9.4-12.4); Platelet Count 420 K/mcL (140-400); Red Blood Count 4.34 M/mcL (3.82-4.97); Red Cell Distribution Width 14.3 % (11.5-14.5)
[2018-04-15 06:42] LABS: Platelet Estimate Increased (Normal)
[2018-04-15 06:44] LABS: Lymphocytes # 4.7 K/mcL (0.6-4.6); Monocytes # 0.5 K/mcL (0.0-1.3); Neutrophils # 7.1 K/mcL (1.6-8.9)
[2018-04-15 07:31] LABS: BUN/Creatinine Ratio 30 (6-26); Blood Urea Nitrogen 17 mg/dL (8-23); Calcium 8.5 mg/dL (8.6-10.3); Carbon Dioxide 30 mEq/L (23-29); Chloride 104 mEq/L (98-107); Glucose 91 mg/dL (70-105); Osmolality,Calculated 295 (280-300); Potassium 3.5 mEq/L (3.5-5.1); Sodium 142 mEq/L (136-145); eGFR For Non-African Americans > 60 (> 60)
[2018-04-15] MEDS ORDERED: Lisinopril 20 MG TABLET PO SCH (09:00)
[2018-04-15] MEDS: Aspirin Enteric Coated 81 MG Tablet PO SCH (09:26)
[2018-04-15] MEDS: predniSONE 20 MG TABLET PO SCH (09:26)
[2018-04-15] MEDS: Nicotine 21 MG PATCH.TD24 TD SCH (09:26)
[2018-04-15] MEDS: amLODIPine 5 MG TABLET PO SCH (09:26)
[2018-04-15] MEDS: *HR* Heparin 5,000 UNIT/ML VIAL SQ SCH (09:27)
[2018-04-15] MEDS: Cholecalciferol (D-3) 1,000 UNIT TABLET PO SCH (09:28)
[2018-04-15] MEDS: Haloperidol Oral Conc 10 MG/5 ML UDC PO SCH (09:28)
[2018-04-15] MEDS: Budesonide/Formoterol 160/4.5 1 PUFF INH IH SCH (10:37)
[2018-04-15 11:28] VITALS: BP 162/75
--- NOTE | 2018-04-15 14:47 | Event Note ---
Date of Encounter: 04/15/18 Time of Encounter: 09:15 to serve as attestation pending resident completion of discharge summary today. I examined this patient and my medical decision-making was reviewed with the Resident Physician Dr Linn. I agree with the documented findings, disposition and treatment plan as described except to the extent set forth below. Ms Dickerson was admitted for COPDE. awake, pleasant,RN at bedside. States breathing is good today. Says she is not coughing or wheezing. No headache or chest pain. Eagerly awaiting dc Cannot obtain further reliable ros/hpi given dementia and MR. Family not at bedside. gen- alert, awake,appears stated age eyes- pupils equal round cv- reg rate and reg rhythm, normal s1,s2, no murmurs appreciated, no le edema lungs- ctabl, no wheezing, rhonchi or crackles, normal resp effort with O2 oxymask (bc takes NC off when nurse applies it) abd- soft, non tender, non distended, + bs neuro- AAOxperson, hospital, situation COPDE with + human metapneumovirus-levaquin course and steroid course completed, will dc with nebs/nebulizer and cont o2 nc for home and already set up Lung mass with CT findings concerning for malignancy and metastatic lung disease-palliative care as per her brother / POAs request, fu with outpt provider Sinus Tachycardia- resolved with IVF challenge HTN, improving with med changes- while her BP is now down into 160/70s her brother is reporting normal bps at home and is frustrated with delay in her dc in recent days, we will dc her to home with current regimen, but she requires outpt fu with pcp for further adjustments. further diagnoses and plan as noted by resident dc to home with brother
--- NOTE | 2018-04-15 21:08 | Electrocardiograph Report ---
[address] [address] Test Date: 2018-04-14 Pat Name: Carline Dickerson Department: 113 Room: 3B43 Gender: F Collar Trimmer: : [id number] Requested By: Brittany Linn Order Number: [id number] Reading MD: Levon Godinez Measurements Intervals [place] Rate: 105 P: 79 ND: 143 QRS: 45 QRSD: 86 T: 55 QT: 301 QTc: 362 Interpretive Statements SINUS TACHYCARDIA WITH OCCASIONAL SUPRAVENTRICULAR PREMATURE COMPLEXES NONSPECIFIC T-WAVE ABNORMALITY Electronically Signed On 04-15-2018 21:06:48 EST by Levon Godinez
== END 2018-04-15 14:49 | disposition home or self-care (01) | DRG 140 ==
LOC: 3BNU → SUATTDRO 03:18
PROVIDERS: ADMIT Internal Medicine; ATTEND Internal Medicine